=== PATIENT | male | born 1970 | race Two or more races ===

== ENCOUNTER 2018-02-16 09:55 | Inpatient (IN) | payer MEDICAID ==
[~2018-02-16] VITALS: Ht 165.1 cm; Wt 76.2 kg
[2018-02-16 11:59] LABS: EOSINOPHILS % 2.1 % (0.0-5.0); HEMATOCRIT. 35.4 % (42.0-52.0); HEMOGLOBIN. 12.4 g/dL (14.0-18.0); LYMPHOCYTES % 20.6 % (20.0-50.0); MEAN CORPUSCULAR HEMOGLOBIN 38.9 pg (28.0-32.0); MEAN CORPUSCULAR VOLUME 110.9 fL (80.0-94.0); NEUTROPHILS % 69.3 % (40.0-76.0); RED BLOOD CELL COUNT 3.19 mill/uL (4.7-6.1); RED CELL DISTRIBUTION WIDTH 16.4 % (11.6-14.6)
[2018-02-16 12:03] LABS: CHLORIDE 104 mEq/L (98-107)
[2018-02-16 12:07] LABS: INR 1.9; PROTHROMBIN TIME 19.4 sec (9.4-11.6)
[2018-02-16 12:15] LABS: AMMONIA 105 uMol/L (<32)
[2018-02-16 12:34] LABS: PLATELET ESTIMATE NORMAL
[2018-02-16 12:35] LABS: PLATELET 147 x1000/uL (130-400)
[2018-02-16 15:45] VITALS: BP 113/59
[2018-02-16 16:00] VITALS: BP 113/59
[2018-02-16] MEDS ORDERED: HYDROMORPHONE HCL/PF 2MG/ML CPJ IV PRN (16:30)
[2018-02-16] MEDS ORDERED: NA PHOS,M-B/NA PHOS,DI-BA ENEMA 118ML PR PRN (16:30)
[2018-02-16] MEDS ORDERED: GUAIFENESIN 200MG/10ML SUGAR FREE UDC PO PRN (16:30)
[2018-02-16] MEDS ORDERED: HYDROCODONE/ACETAMINOPHEN 5/325MG TABLET PO PRN (16:30)
[2018-02-16] MEDS ORDERED: DOCUSATE SODIUM 100MG CAPSULE PO PRN (16:30)
[2018-02-16] MEDS ORDERED: CLONIDINE 0.1MG TABLET PO PRN (16:30)
[2018-02-16] MEDS ORDERED: MAGNESIUM/ALUMINUM HYDROXIDE/SIMETHICONE 30ML UDC PO PRN (16:30)
[2018-02-16] MEDS ORDERED: ONDANSETRON HCL 4MG/2ML VIAL IV PRN (16:30)
[2018-02-16] MEDS ORDERED: DIPHENHYDRAMINE 50MG/ML VIAL IV PRN (16:30)
[2018-02-16] MEDS ORDERED: LORAZEPAM 2MG/ML CPJ IV PRN (16:30)
[2018-02-16] MEDS: SODIUM CHLORIDE 0.45% 1,000 ML IV SCH (16:57)
[2018-02-16] MEDS: ENOXAPARIN 40MG/0.4ML SYR SUBCUT SCH (17:03)
[2018-02-16 20:00] VITALS: BP 123/62
[2018-02-17] VITALS: BP 100/53
[2018-02-17 01:07] LABS: CHLORIDE 106 mEq/L (98-107)
[2018-02-17 04:00] VITALS: BP 103/53
[2018-02-17 06:45] LABS: BASOPHILS % 0.9 % (0.0-2.0); EOSINOPHILS % 4.2 % (0.0-5.0); HEMATOCRIT. 27.7 % (42.0-52.0); HEMOGLOBIN. 9.7 g/dL (14.0-18.0); LYMPHOCYTES % 32.5 % (20.0-50.0); MEAN CORPUSCULAR HEMOGLOBIN 38.2 pg (28.0-32.0); MEAN CORPUSCULAR VOLUME 109.6 fL (80.0-94.0); MEAN PLATELET VOLUME 6.9 fl (7.4-10.4); MONOCYTES % 10.7 % (2.0-8.0); NEUTROPHILS % 51.7 % (40.0-76.0); PLATELET 114 x1000/uL (130-400); RED BLOOD CELL COUNT 2.53 mill/uL (4.7-6.1); RED CELL DISTRIBUTION WIDTH 16.8 % (11.6-14.6)
[2018-02-17] MEDS: LACTULOSE 20G/30ML UDC PO SCH ×3 (07:36→17:18)
[2018-02-17 08:00] VITALS: BP 115/57
[2018-02-17 08:23] LABS: CHLORIDE 107 mEq/L (98-107)
[2018-02-17 08:36] LABS: HDL CHOLESTEROL 14 mg/dL (40-59); T4 FREE 1.33 ng/dL (0.76-1.46)
[2018-02-17 08:38] LABS: LDL CHOLESTEROL 58 mg/dL (5-100)
[2018-02-17 12:00] VITALS: BP 122/70
[2018-02-17 16:00] VITALS: BP 106/48
[2018-02-17] MEDS: ENOXAPARIN 40MG/0.4ML SYR SUBCUT SCH (17:19)
[2018-02-17] MEDS: SODIUM CHLORIDE 0.45% 1,000 ML IV SCH (17:19)
[2018-02-17 20:00] VITALS: BP 111/54
[2018-02-18] VITALS: BP_SYST 105
[2018-02-18] MEDS: LACTULOSE 20G/30ML UDC PO SCH ×4 (00:06→17:37)
[2018-02-18 04:00] VITALS: BP 118/60
[2018-02-18 07:51] LABS: AMMONIA 81 uMol/L (<32)
[2018-02-18 08:00] VITALS: BP 140/72
[2018-02-18 12:00] VITALS: BP 141/61
[2018-02-18 16:00] VITALS: BP 120/72
[2018-02-18] MEDS: SODIUM CHLORIDE 0.45% 1,000 ML IV SCH (17:37)
[2018-02-18] MEDS: ENOXAPARIN 40MG/0.4ML SYR SUBCUT SCH (17:38)
[2018-02-18 20:00] VITALS: BP 100/55
[2018-02-19] VITALS: BP 113/63
[2018-02-19] MEDS: LACTULOSE 20G/30ML UDC PO SCH ×4 (02:12→17:35)
[2018-02-19 04:34] VITALS: BP 115/62
[2018-02-19 12:00] VITALS: BP 117/61
[2018-02-19 16:00] VITALS: BP 141/77
[2018-02-19] MEDS: ENOXAPARIN 40MG/0.4ML SYR SUBCUT SCH (16:50)
[2018-02-19] MEDS: SODIUM CHLORIDE 0.45% 1,000 ML IV SCH (17:35)
[2018-02-19 20:00] VITALS: BP 118/61
[2018-02-20] VITALS (7 sets, daily range): BP systolic 111–127; BP diastolic 59–72
[2018-02-20] MEDS: LACTULOSE 20G/30ML UDC PO SCH ×5 (05:57→23:03)
[2018-02-20] MEDS: FUROSEMIDE 40MG TABLET PO SCH (08:13)
[2018-02-21 04:00] VITALS: BP 127/77
[2018-02-21] MEDS: LACTULOSE 20G/30ML UDC PO SCH ×4 (05:47→23:33)
[2018-02-21 08:00] VITALS: BP 132/72
[2018-02-21] MEDS: FUROSEMIDE 40MG TABLET PO SCH (08:43)
[2018-02-21 12:00] VITALS: BP 127/72
[2018-02-21 16:44] VITALS: BP 143/64
[2018-02-21 20:00] VITALS: BP 123/60
[2018-02-22] VITALS: BP 139/68
[2018-02-22 04:00] VITALS: BP 127/61
[2018-02-22] MEDS: LACTULOSE 20G/30ML UDC PO SCH ×3 (05:52→17:09)
[2018-02-22 08:00] VITALS: BP_SYST 107; BP_SYST 115; BP_DIAS 61; BP_DIAS 62
[2018-02-22] MEDS: FUROSEMIDE 40MG TABLET PO SCH (08:13)
[2018-02-22 12:00] VITALS: BP 107/52
[2018-02-22 16:00] VITALS: BP 121/75
[2018-02-22 20:00] VITALS: BP 111/65
[2018-02-23] VITALS: BP 129/62
[2018-02-23] MEDS: LACTULOSE 20G/30ML UDC PO SCH ×4 (01:07→18:04)
[2018-02-23 04:00] VITALS: BP 115/56
[2018-02-23 08:00] VITALS: BP 133/65
[2018-02-23] MEDS: FUROSEMIDE 40MG TABLET PO SCH (08:21)
[2018-02-23 12:00] VITALS: BP 128/72
[2018-02-23 16:00] VITALS: BP 129/71
[2018-02-23 18:02] LABS: AMMONIA 151 uMol/L (<32)
[2018-02-23 20:00] VITALS: BP 125/54
[2018-02-24] VITALS: BP 142/80
[2018-02-24] MEDS: LACTULOSE 20G/30ML UDC PO SCH ×5 (00:56→23:08)
[2018-02-24 04:00] VITALS: BP 132/66
[2018-02-24] MEDS ORDERED: LACTULOSE 20G/30ML UDC PO SCH (07:45)
[2018-02-24 08:00] VITALS: BP 129/83
[2018-02-24] MEDS: FUROSEMIDE 40MG TABLET PO SCH (09:49)
[2018-02-24 10:30] LABS: BASOPHILS % 0.9 % (0.0-2.0); EOSINOPHILS % 1.1 % (0.0-5.0); HEMATOCRIT. 29.3 % (42.0-52.0); HEMOGLOBIN. 10.3 g/dL (14.0-18.0); LYMPHOCYTES % 27.4 % (20.0-50.0); MEAN CORPUSCULAR VOLUME 108.5 fL (80.0-94.0); MEAN PLATELET VOLUME 7.5 fl (7.4-10.4); MONOCYTES % 8.5 % (2.0-8.0); NEUTROPHILS % 62.1 % (40.0-76.0); PLATELET 126 x1000/uL (130-400); RED CELL DISTRIBUTION WIDTH 16.5 % (11.6-14.6)
[2018-02-24 10:53] LABS: AMMONIA 144 uMol/L (<32)
[2018-02-24 11:05] LABS: CHLORIDE 110 mEq/L (98-107)
[2018-02-24 12:00] VITALS: BP_SYST 127; BP_SYST 136; BP_DIAS 65; BP_DIAS 74
[2018-02-24 20:00] VITALS: BP 105/41
[2018-02-25] VITALS: BP 102/31
[2018-02-25 04:00] VITALS: BP 136/68
[2018-02-25] MEDS: LACTULOSE 20G/30ML UDC PO SCH ×3 (05:20→22:52)
[2018-02-25 06:49] LABS: BASOPHILS % 0.9 % (0.0-2.0); EOSINOPHILS % 0.6 % (0.0-5.0); HEMATOCRIT. 29.7 % (42.0-52.0); HEMOGLOBIN. 10.5 g/dL (14.0-18.0); LYMPHOCYTES % 27.9 % (20.0-50.0); MEAN CORPUSCULAR HEMOGLOBIN 38.4 pg (28.0-32.0); MEAN CORPUSCULAR VOLUME 108.8 fL (80.0-94.0); MEAN PLATELET VOLUME 7.7 fl (7.4-10.4); MONOCYTES % 10.4 % (2.0-8.0); NEUTROPHILS % 60.2 % (40.0-76.0); PLATELET 129 x1000/uL (130-400); RED BLOOD CELL COUNT 2.73 mill/uL (4.7-6.1)
[2018-02-25 07:40] LABS: CHLORIDE 109 mEq/L (98-107)
[2018-02-25 08:00] VITALS: BP 152/69
[2018-02-25] MEDS: FUROSEMIDE 40MG TABLET PO SCH (08:40)
[2018-02-25 09:00] LABS: AMMONIA 136 uMol/L (<32)
[2018-02-25] MEDS ORDERED: POTASSIUM CHLORIDE INJ 40 MEQ in DEXT 5% WATER 250 ML IV ONE (10:15)
[2018-02-25 12:00] VITALS: BP 124/66
[2018-02-25] MEDS: KCL 20MEQ/100ML PREMIX 100 ML IV SCH ×2 (12:38→15:00)
[2018-02-25 13:13] LABS: PLATELET ESTIMATE NORMAL
[2018-02-25 16:00] VITALS: BP 126/52
[2018-02-25] MEDS: RIFAXIMIN 550 MG TABLET PO SCH (17:55)
[2018-02-25 20:00] VITALS: BP 125/66
[2018-02-26] VITALS: BP 106/45
[2018-02-26 04:00] VITALS: BP 116/65
[2018-02-26] MEDS: RIFAXIMIN 550 MG TABLET PO SCH ×2 (06:02→17:15)
[2018-02-26] MEDS: LACTULOSE 20G/30ML UDC PO SCH ×3 (06:03→21:16)
[2018-02-26 07:14] LABS: AMMONIA 104 uMol/L (<32)
[2018-02-26 08:00] VITALS: BP 99/51
[2018-02-26] MEDS: FUROSEMIDE 40MG TABLET PO SCH (08:32)
[2018-02-26 10:34] LABS: CHLORIDE 111 mEq/L (98-107)
[2018-02-26 10:35] LABS: HEMATOCRIT 29.3 % (42.0-52.0); HEMOGLOBIN 10.1 g/dL (14.0-18.0); MEAN CORPUSCULAR HEMOGLOBIN 38.7 pg (28.0-32.0); MEAN CORPUSCULAR VOLUME 112.2 fL (80.0-94.0); PLATELET 126 x1000/uL (130-400); RED BLOOD CELL COUNT 2.61 mill/uL (4.7-6.1); RED CELL DISTRIBUTION WIDTH 16.8 % (11.6-14.6)
[2018-02-26] MEDS: PANTOPRAZOLE SODIUM 40 MG/VIAL IV SCH ×2 (10:45→21:16)
[2018-02-26 12:01] VITALS: BP 106/52
[2018-02-26 13:11] LABS: INR 1.7; PARTIAL THROMBOPLASTIN TIME 38.4 sec (23.4-31.0); PROTHROMBIN TIME 17.8 sec (9.4-11.6)
[2018-02-26 16:00] VITALS: BP 130/65
[2018-02-26] MEDS ORDERED: PHYTONADIONE 10MG/ML AMP SUBCUT NR (16:00)
[2018-02-26 20:00] VITALS: BP 110/64
[2018-02-27] VITALS (11 sets, daily range): BP systolic 97–124; BP diastolic 47–60
[2018-02-27] MEDS: LACTULOSE 20G/30ML UDC PO SCH ×3 (05:56→22:05)
[2018-02-27] MEDS: RIFAXIMIN 550 MG TABLET PO SCH ×2 (05:56→17:38)
[2018-02-27] MEDS ORDERED: PHYTONADIONE 10MG/ML AMP SUBCUT NR (06:00)
[2018-02-27 07:07] LABS: AMMONIA 48 uMol/L (<32)
[2018-02-27 07:09] LABS: INR 1.8; PARTIAL THROMBOPLASTIN TIME 43.4 sec (23.4-31.0); PROTHROMBIN TIME 18.8 sec (9.4-11.6)
[2018-02-27 07:29] LABS: HEMOGLOBIN 9.7 g/dL (14.0-18.0); MEAN CORPUSCULAR HEMOGLOBIN 38.3 pg (28.0-32.0); PLATELET 107 x1000/uL (130-400); RED BLOOD CELL COUNT 2.52 mill/uL (4.7-6.1); RED CELL DISTRIBUTION WIDTH 16.9 % (11.6-14.6)
[2018-02-27 07:47] LABS: CHLORIDE 112 mEq/L (98-107)
[2018-02-27] MEDS: PANTOPRAZOLE SODIUM 40 MG/VIAL IV SCH ×2 (08:38→22:05)
[2018-02-27] MEDS ORDERED: POTASSIUM CHLORIDE INJ 40 MEQ in DEXT 5% WATER 250 ML IV ONE (09:45)
[2018-02-27] MEDS: FUROSEMIDE 40MG TABLET PO SCH (09:59)
[2018-02-27] MEDS ORDERED: KCL 20MEQ/100ML PREMIX 100 ML IV NR ×2 (10:30→12:30)
[2018-02-27] MEDS ORDERED: MIDAZOLAM HCL 5 MG/5 ML VIAL IV PRN (11:17)
[2018-02-27] MEDS ORDERED: FENTANYL CITRATE/PF 50MCG/ML 2ML VIAL ONE (11:23)
[2018-02-27] MEDS ORDERED: MIDAZOLAM HCL 5 MG/5 ML VIAL ONE (11:23)
[2018-02-27] MEDS ORDERED: PHYTONADIONE 10MG/ML AMP SUBCUT SCH ×2 (12:00→18:00)
[2018-02-27] MEDS ORDERED: SORBITOL 70% SOLN 30ML PO SCH (12:00)
[2018-02-27] MEDS ORDERED: SODIUM CHLORIDE 0.9% 10ML VIAL ONE (14:27)
[2018-02-27] MEDS ORDERED: SIMETHICONE 40 MG/0.6 ML 30ML ONE (14:27)
[2018-02-28] VITALS: BP 124/59
[2018-02-28] MEDS: IPRATROPIUM/ALBUTEROL 0.5-3(2.5)MG/3ML NEB INH PRN (00:51)
[2018-02-28 00:57] LABS: HEMATOCRIT 27.1 % (42.0-52.0); HEMOGLOBIN 9.3 g/dL (14.0-18.0)
[2018-02-28 01:02] LABS: INR 1.6; PROTHROMBIN TIME 16.6 sec (9.4-11.6)
[2018-02-28 04:00] VITALS: BP 115/58
[2018-02-28] MEDS: RIFAXIMIN 550 MG TABLET PO SCH ×2 (05:41→18:30)
[2018-02-28] MEDS: LACTULOSE 20G/30ML UDC PO SCH ×4 (05:41→21:14)
[2018-02-28 07:25] LABS: AMMONIA 31 uMol/L (<32)
[2018-02-28] MEDS ORDERED: SODIUM BICARBONATE 4% (2.4MEQ) 5ML VIAL IV ONE (08:21)
[2018-02-28] MEDS ORDERED: LIDOCAINE HCL/PF 1% 10 MG/ML 5ML VIAL ONE (08:23)
[2018-02-28 08:46] VITALS: BP 116/61
[2018-02-28] MEDS: PANTOPRAZOLE SODIUM 40 MG/VIAL IV SCH ×2 (10:20→21:15)
[2018-02-28] MEDS: FUROSEMIDE 40MG/4ML VIAL IVP SCH (10:20)
[2018-02-28 12:16] VITALS: BP 108/53
[2018-02-28 20:00] VITALS: BP 116/59
[2018-03-01] VITALS: BP 106/44
[2018-03-01 04:00] VITALS: BP 107/49
[2018-03-01] MEDS: LACTULOSE 20G/30ML UDC PO SCH ×3 (06:12→21:00)
[2018-03-01] MEDS: RIFAXIMIN 550 MG TABLET PO SCH ×2 (06:13→17:22)
[2018-03-01 07:19] LABS: BASOPHILS % 0.4 % (0.0-2.0); HEMATOCRIT. 31.7 % (42.0-52.0); MEAN CORPUSCULAR HEMOGLOBIN 38.4 pg (28.0-32.0); MEAN CORPUSCULAR VOLUME 110.1 fL (80.0-94.0); MEAN PLATELET VOLUME 7.8 fl (7.4-10.4); MONOCYTES % 10.1 % (2.0-8.0); NEUTROPHILS % 69.5 % (40.0-76.0); PLATELET 109 x1000/uL (130-400); RED BLOOD CELL COUNT 2.88 mill/uL (4.7-6.1); RED CELL DISTRIBUTION WIDTH 16.4 % (11.6-14.6)
[2018-03-01 07:46] LABS: CHLORIDE 111 mEq/L (98-107)
[2018-03-01 08:00] VITALS: BP 103/53
[2018-03-01] MEDS: FUROSEMIDE 40MG/4ML VIAL IVP SCH (08:13)
[2018-03-01] MEDS: PANTOPRAZOLE SODIUM 40 MG/VIAL IV SCH ×2 (08:13→21:00)
[2018-03-01] MEDS: KCL 20MEQ/100ML PREMIX 100 ML IV SCH ×2 (11:05→17:22)
[2018-03-01] MEDS ORDERED: POTASSIUM CHLORIDE INJ 40 MEQ in DEXT 5% WATER 500 ML IV NR (12:00)
[2018-03-01 12:09] VITALS: BP 100/49
[2018-03-01 14:03] LABS: PLATELET ESTIMATE DECREASED
[2018-03-01 16:30] VITALS: BP 120/51
[2018-03-01 20:00] VITALS: BP 111/54
[2018-03-02 04:00] VITALS: BP 98/43
[2018-03-02] MEDS: LACTULOSE 20G/30ML UDC PO SCH ×3 (06:26→22:06)
[2018-03-02] MEDS: RIFAXIMIN 550 MG TABLET PO SCH ×2 (06:26→17:44)
[2018-03-02 07:17] LABS: CHLORIDE 107 mEq/L (98-107)
[2018-03-02 07:29] LABS: AMMONIA 68 uMol/L (<32)
[2018-03-02 08:00] VITALS: BP 107/42
[2018-03-02 08:08] LABS: BASOPHILS % 0.4 % (0.0-2.0); EOSINOPHILS % 3.1 % (0.0-5.0); HEMATOCRIT. 29.3 % (42.0-52.0); HEMOGLOBIN. 10.4 g/dL (14.0-18.0); LYMPHOCYTES % 21.4 % (20.0-50.0); MEAN CORPUSCULAR HEMOGLOBIN 39.6 pg (28.0-32.0); MEAN CORPUSCULAR VOLUME 110.9 fL (80.0-94.0); MONOCYTES % 9.5 % (2.0-8.0); NEUTROPHILS % 65.6 % (40.0-76.0); RED BLOOD CELL COUNT 2.64 mill/uL (4.7-6.1); RED CELL DISTRIBUTION WIDTH 16.7 % (11.6-14.6)
[2018-03-02] MEDS: PANTOPRAZOLE SODIUM 40 MG/VIAL IV SCH ×2 (08:43→22:06)
[2018-03-02] MEDS: FUROSEMIDE 40MG/4ML VIAL IVP SCH (08:43)
[2018-03-02 12:00] VITALS: BP 98/46
[2018-03-02 12:32] LABS: PLATELET 114 x1000/uL (130-400)
[2018-03-02] MEDS ORDERED: POTASSIUM CHLORIDE 20MEQ TABLET SR PO NR (13:00)
[2018-03-02 16:00] VITALS: BP 102/72
[2018-03-02 20:00] VITALS: BP 109/48
[2018-03-02] MEDS: IPRATROPIUM/ALBUTEROL 0.5-3(2.5)MG/3ML NEB HHN SCH ×2 (21:06→23:49)
[2018-03-02 22:00] VITALS: BP 98/49
[2018-03-03 04:00] VITALS: BP 94/55
[2018-03-03] MEDS: IPRATROPIUM/ALBUTEROL 0.5-3(2.5)MG/3ML NEB HHN SCH ×4 (04:44→21:11)
[2018-03-03] MEDS: RIFAXIMIN 550 MG TABLET PO SCH ×2 (05:38→18:10)
[2018-03-03 06:53] LABS: BASOPHILS % 0.5 % (0.0-2.0); HEMATOCRIT. 29.7 % (42.0-52.0); HEMOGLOBIN. 10.3 g/dL (14.0-18.0); LYMPHOCYTES % 30.4 % (20.0-50.0); MEAN CORPUSCULAR HEMOGLOBIN 38.1 pg (28.0-32.0); MEAN CORPUSCULAR VOLUME 109.9 fL (80.0-94.0); MONOCYTES % 10.5 % (2.0-8.0); NEUTROPHILS % 56.6 % (40.0-76.0); RED CELL DISTRIBUTION WIDTH 16.7 % (11.6-14.6)
[2018-03-03 06:58] LABS: CHLORIDE 105 mEq/L (98-107)
[2018-03-03 08:00] VITALS: BP 111/48
[2018-03-03] MEDS: IPRATROPIUM/ALBUTEROL 0.5-3(2.5)MG/3ML NEB INH PRN (08:11)
[2018-03-03] MEDS: LACTULOSE 20G/30ML UDC PO SCH ×2 (08:55→18:10)
[2018-03-03] MEDS: PANTOPRAZOLE SODIUM 40 MG/VIAL IV SCH ×2 (08:55→20:15)
[2018-03-03] MEDS: FUROSEMIDE 40MG/4ML VIAL IVP SCH (08:55)
[2018-03-03 09:54] LABS: PLATELET 108 x1000/uL (130-400)
[2018-03-03 10:14] LABS: AMMONIA 60 uMol/L (<32)
[2018-03-03 10:45] LABS: CHLORIDE 104 mEq/L (98-107)
[2018-03-03 12:18] VITALS: BP 110/54
[2018-03-03] MEDS ORDERED: POTASSIUM CHLORIDE INJ 40 MEQ in DEXT 5% WATER 250 ML IV ONE (13:15)
[2018-03-03] MEDS: KCL 20MEQ/100ML PREMIX 100 ML IV SCH ×2 (14:45→18:10)
[2018-03-03 16:52] VITALS: BP 100/59
[2018-03-03 20:00] VITALS: BP 99/55
[2018-03-04] VITALS: BP_SYST 114; BP_SYST 115; BP_DIAS 54
[2018-03-04] MEDS: IPRATROPIUM/ALBUTEROL 0.5-3(2.5)MG/3ML NEB HHN SCH ×6 (00:26→21:33)
[2018-03-04 04:00] VITALS: BP 108/56
[2018-03-04] MEDS: RIFAXIMIN 550 MG TABLET PO SCH ×2 (06:23→18:56)
[2018-03-04 06:49] LABS: AMMONIA 61 uMol/L (<32)
[2018-03-04 08:00] VITALS: BP 118/63
[2018-03-04] MEDS: PANTOPRAZOLE SODIUM 40 MG/VIAL IV SCH ×2 (09:22→21:56)
[2018-03-04] MEDS: LACTULOSE 20G/30ML UDC PO SCH ×2 (09:22→18:56)
[2018-03-04] MEDS: FUROSEMIDE 40MG/4ML VIAL IVP SCH (09:22)
[2018-03-04 12:00] VITALS: BP 99/53
[2018-03-04 16:00] VITALS: BP 101/54
[2018-03-04 20:00] VITALS: BP 99/57
[2018-03-05] VITALS: BP 97/55
[2018-03-05] MEDS: IPRATROPIUM/ALBUTEROL 0.5-3(2.5)MG/3ML NEB HHN SCH ×6 (00:54→20:38)
[2018-03-05 04:00] VITALS: BP 103/58
[2018-03-05] MEDS: RIFAXIMIN 550 MG TABLET PO SCH ×2 (05:40→16:51)
[2018-03-05 08:00] VITALS: BP 150/51
[2018-03-05] MEDS: FUROSEMIDE 40MG/4ML VIAL IVP SCH (11:13)
[2018-03-05] MEDS: PANTOPRAZOLE SODIUM 40 MG/VIAL IV SCH ×2 (11:13→21:23)
[2018-03-05] MEDS: LACTULOSE 20G/30ML UDC PO SCH ×2 (11:13→16:51)
[2018-03-05 12:00] VITALS: BP 105/66
[2018-03-05 13:07] LABS: BASOPHILS % 0.8 % (0.0-2.0); EOSINOPHILS % 3.1 % (0.0-5.0); HEMATOCRIT. 29.4 % (42.0-52.0); HEMOGLOBIN. 10.2 g/dL (14.0-18.0); LYMPHOCYTES % 26.7 % (20.0-50.0); MEAN CORPUSCULAR HEMOGLOBIN 38.3 pg (28.0-32.0); MEAN CORPUSCULAR VOLUME 110.7 fL (80.0-94.0); MONOCYTES % 8.3 % (2.0-8.0); NEUTROPHILS % 61.1 % (40.0-76.0); RED BLOOD CELL COUNT 2.66 mill/uL (4.7-6.1); RED CELL DISTRIBUTION WIDTH 16.6 % (11.6-14.6)
[2018-03-05 13:24] LABS: CHLORIDE 106 mEq/L (98-107)
[2018-03-05 13:38] LABS: PLATELET 108 x1000/uL (130-400)
[2018-03-05 14:12] LABS: AMMONIA 88 uMol/L (<32)
[2018-03-05 16:00] VITALS: BP 112/62
[2018-03-05 20:00] VITALS: BP 106/70
[2018-03-06 00:05] VITALS: BP 102/69
[2018-03-06] MEDS: IPRATROPIUM/ALBUTEROL 0.5-3(2.5)MG/3ML NEB HHN SCH ×6 (00:45→20:43)
[2018-03-06 04:00] VITALS: BP 112/53
[2018-03-06] MEDS: RIFAXIMIN 550 MG TABLET PO SCH (05:41)
[2018-03-06 08:00] VITALS: BP 103/58
[2018-03-06] MEDS: LACTULOSE 20G/30ML UDC PO SCH ×3 (09:13→18:04)
[2018-03-06] MEDS: PANTOPRAZOLE SODIUM 40 MG/VIAL IV SCH ×2 (09:13→21:11)
[2018-03-06] MEDS: FUROSEMIDE 40MG/4ML VIAL IVP SCH (09:13)
[2018-03-06 12:00] VITALS: BP 110/60
[2018-03-06 20:00] VITALS: BP 108/63
[2018-03-06 23:57] VITALS: BP 106/59
[2018-03-07] MEDS: IPRATROPIUM/ALBUTEROL 0.5-3(2.5)MG/3ML NEB HHN SCH ×6 (00:55→21:15)
[2018-03-07 04:00] VITALS: BP 101/51
[2018-03-07] MEDS: RIFAXIMIN 550 MG TABLET PO SCH ×2 (05:34→17:39)
[2018-03-07 07:00] LABS: AMMONIA 29 uMol/L (<32)
[2018-03-07 08:00] VITALS: BP 102/53
[2018-03-07] MEDS: FUROSEMIDE 40MG/4ML VIAL IVP SCH (09:13)
[2018-03-07] MEDS: PANTOPRAZOLE SODIUM 40 MG/VIAL IV SCH ×2 (09:13→20:49)
[2018-03-07] MEDS: LACTULOSE 20G/30ML UDC PO SCH ×3 (09:13→17:39)
[2018-03-07 12:17] VITALS: BP 101/64
[2018-03-07 16:00] VITALS: BP 110/54
[2018-03-07 20:00] VITALS: BP 102/60
[2018-03-08] VITALS: BP 105/80
[2018-03-08] MEDS: IPRATROPIUM/ALBUTEROL 0.5-3(2.5)MG/3ML NEB HHN SCH ×6 (01:00→21:20)
[2018-03-08 04:00] VITALS: BP 132/80
[2018-03-08] MEDS: RIFAXIMIN 550 MG TABLET PO SCH ×3 (06:00→18:00)
[2018-03-08 07:58] VITALS: BP 101/72
[2018-03-08] MEDS: PANTOPRAZOLE 40MG DR TABLET PO SCH (08:54)
[2018-03-08] MEDS: LACTULOSE 20G/30ML UDC PO SCH ×3 (08:54→17:00)
[2018-03-08] MEDS: FUROSEMIDE 40MG TABLET PO SCH (08:54)
[2018-03-08 11:22] LABS: AMMONIA 46 uMol/L (<32)
[2018-03-08 12:00] VITALS: BP 105/53
[2018-03-08 16:00] VITALS: BP 101/62
[2018-03-08 20:00] VITALS: BP 114/56
[2018-03-09] VITALS: BP 108/50
[2018-03-09] MEDS: IPRATROPIUM/ALBUTEROL 0.5-3(2.5)MG/3ML NEB HHN SCH ×6 (00:14→21:23)
[2018-03-09 04:00] VITALS: BP 118/56
[2018-03-09] MEDS: PANTOPRAZOLE 40MG DR TABLET PO SCH (06:25)
[2018-03-09] MEDS: RIFAXIMIN 550 MG TABLET PO SCH ×2 (06:25→17:08)
[2018-03-09 07:42] VITALS: BP 118/54
[2018-03-09] MEDS: LACTULOSE 20G/30ML UDC PO SCH ×3 (09:51→17:08)
[2018-03-09] MEDS: FUROSEMIDE 40MG TABLET PO SCH (09:51)
[2018-03-09 10:44] LABS: AMMONIA 57 uMol/L (<32)
[2018-03-09 11:50] VITALS: BP 108/53
[2018-03-09 15:34] VITALS: BP 126/73
[2018-03-09 20:00] VITALS: BP 116/61
[2018-03-10] VITALS: BP 97/51
[2018-03-10] MEDS: IPRATROPIUM/ALBUTEROL 0.5-3(2.5)MG/3ML NEB HHN SCH ×6 (00:45→21:19)
[2018-03-10 04:00] VITALS: BP 101/50
[2018-03-10] MEDS: RIFAXIMIN 550 MG TABLET PO SCH ×2 (06:30→17:27)
[2018-03-10 07:21] VITALS: BP 98/66
[2018-03-10] MEDS: PANTOPRAZOLE 40MG DR TABLET PO SCH (07:28)
[2018-03-10] MEDS: LACTULOSE 20G/30ML UDC PO SCH ×3 (08:02→17:27)
[2018-03-10] MEDS: FUROSEMIDE 40MG TABLET PO SCH (08:03)
[2018-03-10 12:07] VITALS: BP 112/70
[2018-03-10 15:30] VITALS: BP 103/53
[2018-03-10 20:04] VITALS: BP 99/46
[2018-03-11] VITALS: BP 108/48
[2018-03-11] MEDS: IPRATROPIUM/ALBUTEROL 0.5-3(2.5)MG/3ML NEB HHN SCH ×2 (01:33→21:10)
[2018-03-11 04:00] VITALS: BP 118/51
[2018-03-11] MEDS: PANTOPRAZOLE 40MG DR TABLET PO SCH ×2 (05:41→06:02)
[2018-03-11] MEDS: RIFAXIMIN 550 MG TABLET PO SCH ×3 (05:41→17:14)
[2018-03-11 08:00] VITALS: BP 122/62
[2018-03-11] MEDS: LACTULOSE 20G/30ML UDC PO SCH ×3 (08:41→17:14)
[2018-03-11] MEDS: FUROSEMIDE 40MG TABLET PO SCH (09:00)
[2018-03-11 12:00] VITALS: BP 123/63
[2018-03-11 13:30] LABS: HEMATOCRIT 28.7 % (42.0-52.0); HEMOGLOBIN 10.1 g/dL (14.0-18.0); MEAN CORPUSCULAR HEMOGLOBIN 38.2 pg (28.0-32.0); MEAN CORPUSCULAR VOLUME 108.1 fL (80.0-94.0); PLATELET 137 x1000/uL (130-400); RED BLOOD CELL COUNT 2.65 mill/uL (4.7-6.1); RED CELL DISTRIBUTION WIDTH 16.3 % (11.6-14.6)
[2018-03-11 14:03] LABS: CHLORIDE 102 mEq/L (98-107)
[2018-03-11 14:10] LABS: AMMONIA 102 uMol/L (<32)
[2018-03-11 16:00] VITALS: BP 140/76
[2018-03-11] MEDS ORDERED: POTASSIUM CHLORIDE 20MEQ/PACKET NG NR (16:45)
[2018-03-11 20:00] VITALS: BP 111/73
[2018-03-12] VITALS: BP 119/65
[2018-03-12] MEDS: IPRATROPIUM/ALBUTEROL 0.5-3(2.5)MG/3ML NEB HHN SCH ×6 (01:01→20:56)
[2018-03-12 04:00] VITALS: BP 101/58
[2018-03-12 06:48] LABS: AMMONIA 111 uMol/L (<32)
[2018-03-12 08:00] VITALS: BP 94/47
[2018-03-12] MEDS: LACTULOSE 20G/30ML UDC PO SCH ×3 (09:07→23:04)
[2018-03-12] MEDS: FUROSEMIDE 40MG TABLET PO SCH (09:07)
[2018-03-12] MEDS: PANTOPRAZOLE 40MG DR TABLET PO SCH (09:07)
[2018-03-12] MEDS: RIFAXIMIN 550 MG TABLET PO SCH ×2 (09:07→18:20)
[2018-03-12 12:00] VITALS: BP 114/70
[2018-03-12 15:59] LABS: CHLORIDE 104 mEq/L (98-107)
[2018-03-12 16:00] VITALS: BP 127/77
[2018-03-12] MEDS ORDERED: POTASSIUM CHLORIDE 20MEQ TABLET SR PO NR (16:15)
[2018-03-12 20:00] VITALS: BP 149/74
[2018-03-13] VITALS (8 sets, daily range): BP systolic 80–140; BP diastolic 41–76
[2018-03-13] MEDS: IPRATROPIUM/ALBUTEROL 0.5-3(2.5)MG/3ML NEB HHN SCH ×5 (00:53→21:12)
[2018-03-13] MEDS: ACETAMINOPHEN 325MG TABLET PO PRN (01:20)
[2018-03-13] MEDS: RIFAXIMIN 550 MG TABLET PO SCH ×2 (05:04→17:33)
[2018-03-13] MEDS: LACTULOSE 20G/30ML UDC PO SCH ×3 (05:04→17:33)
[2018-03-13] MEDS: PANTOPRAZOLE 40MG DR TABLET PO SCH (06:23)
[2018-03-13] MEDS: FUROSEMIDE 40MG TABLET PO SCH (08:20)
[2018-03-13 10:05] LABS: HEMATOCRIT 28.5 % (42.0-52.0); HEMOGLOBIN 9.9 g/dL (14.0-18.0); MEAN CORPUSCULAR HEMOGLOBIN 37.7 pg (28.0-32.0); MEAN CORPUSCULAR VOLUME 108.9 fL (80.0-94.0); PLATELET 132 x1000/uL (130-400); RED BLOOD CELL COUNT 2.62 mill/uL (4.7-6.1); RED CELL DISTRIBUTION WIDTH 16.2 % (11.6-14.6)
[2018-03-13 10:13] LABS: AMMONIA 83 uMol/L (<32)
[2018-03-13 10:17] LABS: CHLORIDE 106 mEq/L (98-107)
[2018-03-13] MEDS ORDERED: POTASSIUM CHLORIDE 20MEQ/PACKET NG NR (14:30)
[2018-03-14] VITALS (50 sets, daily range): BP systolic 97–147; BP diastolic 38–102
[2018-03-14] MEDS: IPRATROPIUM/ALBUTEROL 0.5-3(2.5)MG/3ML NEB HHN SCH ×6 (00:38→20:24)
[2018-03-14] MEDS: LACTULOSE 20G/30ML UDC PO SCH ×5 (00:54→23:41)
[2018-03-14] MEDS: RIFAXIMIN 550 MG TABLET PO SCH ×2 (06:00→17:42)
[2018-03-14 06:59] LABS: BASOPHILS % 0.2 % (0.0-2.0); EOSINOPHILS % 0.1 % (0.0-5.0); HEMATOCRIT. 30.8 % (42.0-52.0); HEMOGLOBIN. 10.6 g/dL (14.0-18.0); MEAN CORPUSCULAR HEMOGLOBIN 37.4 pg (28.0-32.0); MEAN CORPUSCULAR VOLUME 108.9 fL (80.0-94.0); NEUTROPHILS % 82.7 % (40.0-76.0); RED BLOOD CELL COUNT 2.83 mill/uL (4.7-6.1); RED CELL DISTRIBUTION WIDTH 16.5 % (11.6-14.6)
[2018-03-14] MEDS: PANTOPRAZOLE 40MG DR TABLET PO SCH (07:10)
[2018-03-14 07:35] LABS: CHLORIDE 107 mEq/L (98-107)
[2018-03-14] MEDS ORDERED: LEVOFLOXACIN 500MG PREMIX 100 ML IV SCH (08:00)
[2018-03-14] MEDS: FUROSEMIDE 40MG TABLET PO SCH (09:00)
[2018-03-14 09:41] LABS: BG BASE EXCESS -1.8 mmol/L (-2.0-2.0); BG CARBOXYHEMOGLOBIN 0.3 % (0.5-1.5); BG DEOXYHEMOGLOBIN 9.6 % (0.0-5.0); BG FRACTION INSPIRED OXYGEN 32; BG HCO3 ACT 20.2 mmol/L (22.0-26.0); BG OXYGEN SATURATION 90.4 % (92.0-98.5); BG OXYHEMOGLOBIN 90.1 % (94.0-97.0); BG PCO2 25.9 mmHg (35.0-45.0); BG PO2 56.7 mmHg (75.0-100.0); BG SAMPLE SITE RIGHT BRACHIAL; BG TOTAL HEMOGLOBIN 10.5 g/dL (12.0-18.0); BG VENT MODE NASAL CANNULA
[2018-03-14] MEDS ORDERED: PROPOFOL 10MG/ML 100ML 100 ML IV PRN (10:00)
[2018-03-14 10:14] LABS: MEAN PLATELET VOLUME 6.3 fl (7.4-10.4); PLATELET 137 x1000/uL (130-400)
[2018-03-14] MEDS ORDERED: VANCOMYCIN 1500MG in DEXTROSE 5% WATER 250ML IV SCH (12:00)
[2018-03-14] MEDS: PIPERACILLIN/TAZ 3.375G PREMIX 50 ML IV SCH ×2 (13:02→21:37)
[2018-03-14 13:26] LABS: BG BASE EXCESS -1.7 mmol/L (-2.0-2.0); BG CARBOXYHEMOGLOBIN 0.1 % (0.5-1.5); BG DEOXYHEMOGLOBIN 0.5 % (0.0-5.0); BG FRACTION INSPIRED OXYGEN 100; BG HCO3 ACT 22.1 mmol/L (22.0-26.0); BG METHEMOGLOBIN 0.3 % (0.0-1.5); BG OXYGEN SATURATION 99.5 % (92.0-98.5); BG OXYHEMOGLOBIN 99.1 % (94.0-97.0); BG PCO2 33.7 mmHg (35.0-45.0); BG PH 7.434 (7.350-7.450); BG PO2 209.6 mmHg (75.0-100.0); BG SAMPLE SITE RIGHT RADIAL; BG TOTAL HEMOGLOBIN 10.7 g/dL (12.0-18.0); BG VENT MODE VENT - A/C; BG VENT RATE 16 set
[2018-03-14 13:27] LABS: AMMONIA 56 uMol/L (<32)
[2018-03-14] MEDS ORDERED: POTASSIUM CHLORIDE INJ 40 MEQ in DEXT 5% WATER 250 ML IV ONE (14:15)
[2018-03-14] MEDS ORDERED: ETOMIDATE 2MG/ML 10ML VIAL IV ONE (14:33)
[2018-03-14] MEDS ORDERED: VECURONIUM BROMIDE 10 MG/VIAL IV ONE ×2 (14:33→14:55)
[2018-03-14] MEDS: ACETYLCYSTEINE 100MG/ML 10% VIAL 4ML INH SCH (15:11)
[2018-03-14] MEDS: KCL 20MEQ/100ML PREMIX 100 ML IV SCH ×2 (15:13→17:37)
[2018-03-14] MEDS: VANCOMYCIN 1 G PREMIX 200 ML IV SCH (23:22)
[2018-03-14] MEDS: DEXT 5%/LACTATED RINGERS 1,000 ML IV SCH (23:30)
[2018-03-15] VITALS (96 sets, daily range): BP systolic 77–137; BP diastolic 31–77
[2018-03-15] MEDS: IPRATROPIUM/ALBUTEROL 0.5-3(2.5)MG/3ML NEB HHN SCH ×7 (00:29→23:57)
[2018-03-15] MEDS: ACETYLCYSTEINE 100MG/ML 10% VIAL 4ML INH SCH ×2 (00:30→08:34)
[2018-03-15] MEDS: PIPERACILLIN/TAZ 3.375G PREMIX 50 ML IV SCH ×3 (04:17→20:43)
[2018-03-15] MEDS: ACETAMINOPHEN 325MG TABLET PO PRN (04:19)
[2018-03-15 05:50] LABS: BASOPHILS % 0.3 % (0.0-2.0); EOSINOPHILS % 1.2 % (0.0-5.0); HEMOGLOBIN. 10.5 g/dL (14.0-18.0); LYMPHOCYTES % 12.6 % (20.0-50.0); MEAN CORPUSCULAR HEMOGLOBIN 37.3 pg (28.0-32.0); MEAN CORPUSCULAR VOLUME 109.8 fL (80.0-94.0); MONOCYTES % 7.1 % (2.0-8.0); NEUTROPHILS % 78.8 % (40.0-76.0); RED BLOOD CELL COUNT 2.83 mill/uL (4.7-6.1); RED CELL DISTRIBUTION WIDTH 16.2 % (11.6-14.6)
[2018-03-15 06:04] LABS: AMMONIA 59 uMol/L (<32)
[2018-03-15 06:09] LABS: CHLORIDE 111 mEq/L (98-107)
[2018-03-15] MEDS: LACTULOSE 20G/30ML UDC PO SCH ×3 (07:30→17:26)
[2018-03-15] MEDS: VANCOMYCIN 1 G PREMIX 200 ML IV SCH ×2 (07:30→16:05)
[2018-03-15] MEDS: RIFAXIMIN 550 MG TABLET PO SCH ×2 (07:31→17:26)
[2018-03-15] MEDS: PANTOPRAZOLE 40MG DR TABLET PO SCH (07:31)
[2018-03-15] MEDS: FUROSEMIDE 40MG TABLET PO SCH (08:28)
[2018-03-15 08:58] LABS: PLATELET 110 x1000/uL (130-400)
[2018-03-15 08:59] LABS: MEAN PLATELET VOLUME 8.3 fl (7.4-10.4)
[2018-03-15 10:14] LABS: INR 2.3; PROTHROMBIN TIME 23.9 sec (9.4-11.6)
[2018-03-15 10:29] LABS: BG CARBOXYHEMOGLOBIN 0.2 % (0.5-1.5); BG DEOXYHEMOGLOBIN 1.3 % (0.0-5.0); BG FRACTION INSPIRED OXYGEN 40; BG HCO3 ACT 23.7 mmol/L (22.0-26.0); BG METHEMOGLOBIN 0.1 % (0.0-1.5); BG OXYGEN SATURATION 98.7 % (92.0-98.5); BG OXYHEMOGLOBIN 98.4 % (94.0-97.0); BG PCO2 31.1 mmHg (35.0-45.0); BG PH 7.499 (7.350-7.450); BG PO2 121.6 mmHg (75.0-100.0); BG SAMPLE SITE RIGHT BRACHIAL; BG TIDAL VOLUME(mL) 500 mL; BG TOTAL HEMOGLOBIN 10.7 g/dL (12.0-18.0); BG VENT MODE VENT - A/C; BG VENT RATE 14 set
[2018-03-15] MEDS ORDERED: LIDOCAINE HCL 1% 20ML VIAL (Pyxis) INJ ONE (10:57)
[2018-03-15] MEDS: DEXT 5%/LACTATED RINGERS 1,000 ML IV SCH (20:44)
[2018-03-16] VITALS (69 sets, daily range): BP systolic 86–146; BP diastolic 47–83
[2018-03-16] MEDS: LACTULOSE 20G/30ML UDC PO SCH ×4 (00:16→17:42)
[2018-03-16] MEDS: VANCOMYCIN 1 G PREMIX 200 ML IV SCH ×2 (02:28→14:34)
[2018-03-16] MEDS: IPRATROPIUM/ALBUTEROL 0.5-3(2.5)MG/3ML NEB HHN SCH ×5 (03:51→20:19)
[2018-03-16] MEDS: PIPERACILLIN/TAZ 3.375G PREMIX 50 ML IV SCH (03:53)
[2018-03-16 05:00] LABS: CLARITY URINE TURBID (CLEAR); COLOR URINE DARK YELLOW (YELLOW); KETONES URINE TRACE (NEGATIVE); LEUKOCYTE ESTERASE URINE 1+ (NEGATIVE); NITRITE URINE POSITIVE (NEGATIVE); OCCULT BLOOD URINE 1+ (NEGATIVE); PROTEIN URINE 1+ (NEGATIVE); SPECIFIC GRAVITY URINE 1.055 (1.005-1.030)
[2018-03-16] MEDS: RIFAXIMIN 550 MG TABLET PO SCH ×2 (05:38→17:42)
[2018-03-16 08:57] LABS: BG BASE EXCESS 3.7 mmol/L (-2.0-2.0); BG CARBOXYHEMOGLOBIN 0.3 % (0.5-1.5); BG DEOXYHEMOGLOBIN 4.1 % (0.0-5.0); BG FRACTION INSPIRED OXYGEN 40; BG HCO3 ACT 26.5 mmol/L (22.0-26.0); BG METHEMOGLOBIN 0.3 % (0.0-1.5); BG OXYGEN SATURATION 95.9 % (92.0-98.5); BG OXYHEMOGLOBIN 95.3 % (94.0-97.0); BG PCO2 33.7 mmHg (35.0-45.0); BG PH 7.514 (7.350-7.450); BG PO2 77.6 mmHg (75.0-100.0); BG SAMPLE SITE RIGHT BRACHIAL; BG TIDAL VOLUME(mL) 500 mL; BG TOTAL HEMOGLOBIN 10.5 g/dL (12.0-18.0); BG VENT MODE VENT - A/C; BG VENT RATE 14 set
[2018-03-16] MEDS: LEVOFLOXACIN 500MG PREMIX 100 ML IV SCH (13:03)
[2018-03-16] MEDS: ACETAMINOPHEN 325MG TABLET PO PRN (13:04)
[2018-03-16] MEDS: DEXT 5%/LACTATED RINGERS 1,000 ML IV SCH (13:04)
[2018-03-16 16:12] LABS: CHLORIDE 111 mEq/L (98-107)
[2018-03-16 16:19] LABS: AMMONIA 66 uMol/L (<32)
[2018-03-16] MEDS ORDERED: POTASSIUM CHLORIDE INJ 40 MEQ in DEXT 5% WATER 250 ML IV ONE (17:15)
[2018-03-16] MEDS: KCL 20MEQ/100ML PREMIX 100 ML IV SCH ×2 (17:42→19:53)
[2018-03-16] MEDS ORDERED: POTASSIUM CHLORIDE INJ 40 MEQ in SODIUM CHLORIDE 0.9% 250 ML IV ONE (18:00)
[2018-03-16] MEDS ORDERED: MORPHINE SULFATE 2 MG/ML CPJ (NOT FOR IM USE) IV PRN (19:15)
[2018-03-16] MEDS ORDERED: POTASSIUM CHLORIDE INJ 40 MEQ in SODIUM CHLORIDE 0.9% 250 ML IV PRN (19:45)
[2018-03-16] MEDS ORDERED: KCL 20MEQ/100ML PREMIX 100 ML IV SCH (22:30)
[2018-03-17] VITALS (55 sets, daily range): BP systolic 103–152; BP diastolic 53–111
[2018-03-17] MEDS: MORPHINE SULFATE 4 MG/ML CPJ (NOT FOR IM USE) IV PRN (00:11)
[2018-03-17] MEDS: IPRATROPIUM/ALBUTEROL 0.5-3(2.5)MG/3ML NEB HHN SCH ×6 (00:12→20:00)
[2018-03-17] MEDS ORDERED: KCL 20MEQ/100ML PREMIX 100 ML IV SCH (00:30)
[2018-03-17] MEDS: VANCOMYCIN 1 G PREMIX 200 ML IV SCH (03:07)
[2018-03-17 05:44] LABS: HEMATOCRIT. 30.1 % (42.0-52.0); HEMOGLOBIN. 10.3 g/dL (14.0-18.0); MEAN CORPUSCULAR HEMOGLOBIN 37.2 pg (28.0-32.0); MEAN CORPUSCULAR VOLUME 109.3 fL (80.0-94.0); RED BLOOD CELL COUNT 2.76 mill/uL (4.7-6.1); RED CELL DISTRIBUTION WIDTH 16.1 % (11.6-14.6)
[2018-03-17 06:10] LABS: AMMONIA 68 uMol/L (<32)
[2018-03-17] MEDS: RIFAXIMIN 550 MG TABLET PO SCH ×2 (06:11→17:31)
[2018-03-17 06:14] LABS: CHLORIDE 114 mEq/L (98-107)
[2018-03-17] MEDS ORDERED: LIDOCAINE HCL 2% JELLY 5ML MM NR (08:00)
[2018-03-17 09:04] LABS: BG BASE EXCESS 2.6 mmol/L (-2.0-2.0); BG CARBOXYHEMOGLOBIN 0.3 % (0.5-1.5); BG DEOXYHEMOGLOBIN 4.1 % (0.0-5.0); BG FRACTION INSPIRED OXYGEN 40; BG HCO3 ACT 25.5 mmol/L (22.0-26.0); BG METHEMOGLOBIN 0.3 % (0.0-1.5); BG OXYGEN SATURATION 95.9 % (92.0-98.5); BG OXYHEMOGLOBIN 95.3 % (94.0-97.0); BG PCO2 33.4 mmHg (35.0-45.0); BG PH 7.501 (7.350-7.450); BG PO2 85.1 mmHg (75.0-100.0); BG SAMPLE SITE RIGHT BRACHIAL; BG TIDAL VOLUME(mL) 500 mL; BG TOTAL HEMOGLOBIN 10.4 g/dL (12.0-18.0); BG VENT MODE VENT - A/C; BG VENT RATE 14 set
[2018-03-17 09:30] LABS: PLATELET ESTIMATE DECREASED
[2018-03-17 09:32] LABS: PLATELET 92 x1000/uL (130-400)
[2018-03-17] MEDS: DEXT 5%/LACTATED RINGERS 1,000 ML IV SCH ×2 (12:08→17:31)
[2018-03-17] MEDS: LEVOFLOXACIN 500MG PREMIX 100 ML IV SCH (12:08)
[2018-03-17 17:40] LABS: BG BASE EXCESS 3.5 mmol/L (-2.0-2.0); BG CARBOXYHEMOGLOBIN 0.3 % (0.5-1.5); BG DEOXYHEMOGLOBIN 3.4 % (0.0-5.0); BG FRACTION INSPIRED OXYGEN 40; BG HCO3 ACT 26.2 mmol/L (22.0-26.0); BG METHEMOGLOBIN 0.3 % (0.0-1.5); BG OXYGEN SATURATION 96.6 % (92.0-98.5); BG PCO2 32.5 mmHg (35.0-45.0); BG PH 7.525 (7.350-7.450); BG PO2 85.6 mmHg (75.0-100.0); BG PRESSURE SUPPORT 12; BG SAMPLE SITE RIGHT BRACHIAL; BG TIDAL VOLUME(mL) 500 mL; BG TOTAL HEMOGLOBIN 8.7 g/dL (12.0-18.0); BG VENT MODE VENT - SIMV; BG VENT RATE 10 set
[2018-03-17] MEDS ORDERED: VANCOMYCIN 1500MG in DEXTROSE 5% WATER 250ML IV SCH (18:00)
[2018-03-17] MEDS ORDERED: PANTOPRAZOLE SODIUM 40 MG/VIAL IV NR (20:00)
[2018-03-18] VITALS (52 sets, daily range): BP systolic 98–141; BP diastolic 40–96
[2018-03-18] MEDS: IPRATROPIUM/ALBUTEROL 0.5-3(2.5)MG/3ML NEB HHN SCH ×6 (00:06→20:12)
[2018-03-18] MEDS: RIFAXIMIN 550 MG TABLET PO SCH ×2 (05:24→19:00)
[2018-03-18 05:38] LABS: BASOPHILS % 0.4 % (0.0-2.0); EOSINOPHILS % 1.8 % (0.0-5.0); HEMATOCRIT. 27.2 % (42.0-52.0); HEMOGLOBIN. 9.3 g/dL (14.0-18.0); LYMPHOCYTES % 19.3 % (20.0-50.0); MEAN CORPUSCULAR HEMOGLOBIN 37.2 pg (28.0-32.0); MEAN CORPUSCULAR VOLUME 108.9 fL (80.0-94.0); MONOCYTES % 14.2 % (2.0-8.0); NEUTROPHILS % 64.3 % (40.0-76.0); RED BLOOD CELL COUNT 2.49 mill/uL (4.7-6.1); RED CELL DISTRIBUTION WIDTH 15.9 % (11.6-14.6)
[2018-03-18 05:46] LABS: CHLORIDE 112 mEq/L (98-107)
[2018-03-18 05:50] LABS: AMMONIA 41 uMol/L (<32)
[2018-03-18 08:10] LABS: BG CARBOXYHEMOGLOBIN 0.1 % (0.5-1.5); BG DEOXYHEMOGLOBIN 2.3 % (0.0-5.0); BG HCO3 ACT 23.8 mmol/L (22.0-26.0); BG METHEMOGLOBIN 0.2 % (0.0-1.5); BG OXYGEN SATURATION 97.7 % (92.0-98.5); BG OXYHEMOGLOBIN 97.4 % (94.0-97.0); BG PCO2 31.3 mmHg (35.0-45.0); BG PH 7.499 (7.350-7.450); BG PO2 102.8 mmHg (75.0-100.0); BG SAMPLE SITE LEFT RADIAL; BG TIDAL VOLUME(mL) 500 mL; BG VENT MODE VENT - SIMV; BG VENT RATE 10 set
[2018-03-18] MEDS: PANTOPRAZOLE SODIUM 40 MG/VIAL IV SCH (08:14)
[2018-03-18] MEDS: MORPHINE SULFATE 4 MG/ML CPJ (NOT FOR IM USE) IV PRN ×2 (08:15→21:37)
[2018-03-18 10:20] LABS: MEAN PLATELET VOLUME 8.6 fl (7.4-10.4); PLATELET 74 x1000/uL (130-400)
[2018-03-18] MEDS ORDERED: SODIUM CHLORIDE 0.9% 500 ML IV ONE (12:45)
[2018-03-18] MEDS: DEXT 5%/LACTATED RINGERS 1,000 ML IV SCH (13:30)
[2018-03-18] MEDS: LEVOFLOXACIN 500MG PREMIX 100 ML IV SCH (13:32)
[2018-03-19] VITALS (47 sets, daily range): BP systolic 100–144; BP diastolic 42–90
[2018-03-19] MEDS: IPRATROPIUM/ALBUTEROL 0.5-3(2.5)MG/3ML NEB HHN SCH ×6 (00:05→21:37)
[2018-03-19] MEDS: DEXT 5%/LACTATED RINGERS 1,000 ML IV SCH ×2 (03:57→22:01)
[2018-03-19] MEDS: MORPHINE SULFATE 4 MG/ML CPJ (NOT FOR IM USE) IV PRN (03:58)
[2018-03-19 05:43] LABS: BASOPHILS % 0.5 % (0.0-2.0); HEMATOCRIT. 26.9 % (42.0-52.0); HEMOGLOBIN. 9.4 g/dL (14.0-18.0); MEAN CORPUSCULAR HEMOGLOBIN 37.6 pg (28.0-32.0); MEAN CORPUSCULAR VOLUME 108.3 fL (80.0-94.0); MONOCYTES % 10.5 % (2.0-8.0); RED BLOOD CELL COUNT 2.49 mill/uL (4.7-6.1)
[2018-03-19 06:05] LABS: CHLORIDE 114 mEq/L (98-107)
[2018-03-19] MEDS: RIFAXIMIN 550 MG TABLET PO SCH ×2 (06:30→18:13)
[2018-03-19 07:54] LABS: BG BASE EXCESS 2.1 mmol/L (-2.0-2.0); BG CARBOXYHEMOGLOBIN 0.3 % (0.5-1.5); BG DEOXYHEMOGLOBIN 2.8 % (0.0-5.0); BG HCO3 ACT 25.6 mmol/L (22.0-26.0); BG METHEMOGLOBIN 0.1 % (0.0-1.5); BG OXYGEN SATURATION 97.2 % (92.0-98.5); BG OXYHEMOGLOBIN 96.8 % (94.0-97.0); BG PCO2 35.2 mmHg (35.0-45.0); BG PH 7.479 (7.350-7.450); BG PO2 92.3 mmHg (75.0-100.0); BG SAMPLE SITE RIGHT RADIAL; BG TIDAL VOLUME(mL) 500 mL; BG TOTAL HEMOGLOBIN 9.4 g/dL (12.0-18.0); BG VENT MODE VENT - SIMV; BG VENT RATE 10 set
[2018-03-19] MEDS: PANTOPRAZOLE SODIUM 40 MG/VIAL IV SCH (08:52)
[2018-03-19] MEDS: LEVOFLOXACIN 750MG PREMIX 150 ML IV SCH (10:47)
[2018-03-19 12:21] LABS: PLATELET 66 x1000/uL (130-400)
[2018-03-20] VITALS (48 sets, daily range): BP systolic 89–151; BP diastolic 25–91
[2018-03-20] MEDS: IPRATROPIUM/ALBUTEROL 0.5-3(2.5)MG/3ML NEB HHN SCH ×5 (01:01→20:10)
[2018-03-20] MEDS: RIFAXIMIN 550 MG TABLET PO SCH ×2 (06:03→17:43)
[2018-03-20 06:34] LABS: AMMONIA 82 uMol/L (<32)
[2018-03-20] MEDS: PANTOPRAZOLE SODIUM 40 MG/VIAL IV SCH (08:44)
[2018-03-20 10:09] LABS: BG CARBOXYHEMOGLOBIN 0.1 % (0.5-1.5); BG DEOXYHEMOGLOBIN 4.6 % (0.0-5.0); BG FRACTION INSPIRED OXYGEN 40; BG HCO3 ACT 23.8 mmol/L (22.0-26.0); BG METHEMOGLOBIN 0.1 % (0.0-1.5); BG OXYGEN SATURATION 95.4 % (92.0-98.5); BG OXYHEMOGLOBIN 95.2 % (94.0-97.0); BG PCO2 31.1 mmHg (35.0-45.0); BG PH 7.501 (7.350-7.450); BG PO2 77.4 mmHg (75.0-100.0); BG PRESSURE SUPPORT 8; BG SAMPLE SITE RIGHT RADIAL; BG VENT MODE VENT - CPAP
[2018-03-20] MEDS: LEVOFLOXACIN 750MG PREMIX 150 ML IV SCH (11:17)
[2018-03-20] MEDS: DEXT 5%/LACTATED RINGERS 1,000 ML IV SCH (12:36)
[2018-03-20] MEDS: LACTULOSE 20G/30ML UDC PO SCH (14:59)
[2018-03-21] VITALS (48 sets, daily range): BP systolic 91–146; BP diastolic 24–94
[2018-03-21] MEDS: IPRATROPIUM/ALBUTEROL 0.5-3(2.5)MG/3ML NEB HHN SCH ×7 (00:31→23:57)
[2018-03-21] MEDS: RIFAXIMIN 550 MG TABLET PO SCH ×2 (06:16→18:22)
[2018-03-21] MEDS: DEXT 5%/LACTATED RINGERS 1,000 ML IV SCH (06:16)
[2018-03-21 06:21] LABS: AMMONIA 50 uMol/L (<32)
[2018-03-21] MEDS ORDERED: LIDOCAINE HCL 1% 20ML VIAL (Pyxis) INJ ONE (08:25)
[2018-03-21] MEDS: LACTULOSE 20G/30ML UDC PO SCH (09:22)
[2018-03-21] MEDS: DEXTROSE 5% WATER 1,000 ML IV SCH (09:22)
[2018-03-21] MEDS: PANTOPRAZOLE SODIUM 40 MG/VIAL IV SCH (09:22)
[2018-03-21] MEDS: NAFCILLIN SODIUM 2,000 MG in SODIUM CHLORIDE 0.9% 100 ML IV SCH ×2 (13:26→18:21)
[2018-03-22] VITALS (39 sets, daily range): BP systolic 74–147; BP diastolic 50–94
[2018-03-22] MEDS: NAFCILLIN SODIUM 2,000 MG in SODIUM CHLORIDE 0.9% 100 ML IV SCH ×3 (01:06→11:50)
[2018-03-22] MEDS: DEXTROSE 5% WATER 1,000 ML IV SCH ×2 (01:06→11:50)
[2018-03-22] MEDS: IPRATROPIUM/ALBUTEROL 0.5-3(2.5)MG/3ML NEB HHN SCH ×5 (04:23→20:47)
[2018-03-22 05:09] LABS: BASOPHILS % 0.3 % (0.0-2.0); EOSINOPHILS % 0.6 % (0.0-5.0); HEMATOCRIT. 26.8 % (42.0-52.0); HEMOGLOBIN. 9.2 g/dL (14.0-18.0); LYMPHOCYTES % 9.5 % (20.0-50.0); MEAN CORPUSCULAR HEMOGLOBIN 37.2 pg (28.0-32.0); MEAN CORPUSCULAR VOLUME 108.7 fL (80.0-94.0); MONOCYTES % 5.7 % (2.0-8.0); NEUTROPHILS % 83.9 % (40.0-76.0); RED BLOOD CELL COUNT 2.46 mill/uL (4.7-6.1); RED CELL DISTRIBUTION WIDTH 16.3 % (11.6-14.6)
[2018-03-22 05:29] LABS: PHOSPHORUS 4.4 mg/dL (2.5-4.9)
[2018-03-22] MEDS: RIFAXIMIN 550 MG TABLET PO SCH ×2 (05:52→18:30)
[2018-03-22 06:40] LABS: PLATELET 68 x1000/uL (130-400)
[2018-03-22 06:41] LABS: MEAN PLATELET VOLUME 9.8 fl (7.4-10.4)
[2018-03-22] MEDS ORDERED: FUROSEMIDE 20MG/2ML VIAL IVP NR (07:50)
[2018-03-22] MEDS: PANTOPRAZOLE SODIUM 40 MG/VIAL IV SCH (08:58)
[2018-03-22] MEDS: LACTULOSE 20G/30ML UDC PO SCH (08:58)
[2018-03-22 13:41] LABS: CREATINE KINASE 54 IU/L (39-308)
[2018-03-22 16:51] LABS: AMMONIA 38 uMol/L (<32)
[2018-03-22] MEDS: CEFAZOLIN 2,000 MG in DEXT 5% WATER 100 ML IV SCH (17:00)
[2018-03-23] VITALS (83 sets, daily range): BP systolic 76–171; BP diastolic 33–134
[2018-03-23] MEDS: CEFAZOLIN 2,000 MG in DEXT 5% WATER 100 ML IV SCH ×3 (00:12→21:25)
[2018-03-23] MEDS: IPRATROPIUM/ALBUTEROL 0.5-3(2.5)MG/3ML NEB HHN SCH ×6 (01:10→20:23)
[2018-03-23] MEDS: RIFAXIMIN 550 MG TABLET PO SCH ×2 (05:56→17:22)
[2018-03-23] MEDS ORDERED: LIDOCAINE HCL 1% 20ML VIAL (Pyxis) INJ ONE (08:27)
[2018-03-23 08:50] LABS: HEMATOCRIT. 23.8 % (42.0-52.0); HEMOGLOBIN. 8.2 g/dL (14.0-18.0); MEAN CORPUSCULAR HEMOGLOBIN 37.3 pg (28.0-32.0); RED BLOOD CELL COUNT 2.21 mill/uL (4.7-6.1); RED CELL DISTRIBUTION WIDTH 16.4 % (11.6-14.6)
[2018-03-23 08:58] LABS: AMMONIA 37 uMol/L (<32); INR 1.5; PROTHROMBIN TIME 15.3 sec (9.4-11.6)
[2018-03-23 09:01] LABS: PHOSPHORUS 5.5 mg/dL (2.5-4.9)
[2018-03-23] MEDS: METOCLOPRAMIDE HCL 10MG/2ML VIAL IV SCH ×3 (09:31→17:21)
[2018-03-23] MEDS: LACTULOSE 20G/30ML UDC PO SCH (09:31)
[2018-03-23] MEDS: PANTOPRAZOLE SODIUM 40 MG/VIAL IV SCH (09:31)
[2018-03-23 13:25] LABS: HEPATITIS B SURFACE ANTIGEN NEGATIVE
[2018-03-23 13:53] LABS: HEPATITIS B CORE AB IGM NEGATIVE
[2018-03-23 13:55] LABS: HEPATITIS A AB IGM NEGATIVE (NEGATIVE)
[2018-03-23] MEDS: DEXTROSE 5% WATER 1,000 ML IV SCH ×2 (14:53→17:20)
[2018-03-23] MEDS ORDERED: FUROSEMIDE 40MG/4ML VIAL IVP NR (15:45)
[2018-03-23] MEDS ORDERED: METRONIDAZOLE 500 MG PREMIX 100 ML IV SCH (17:00)
[2018-03-23] MEDS: MIDODRINE HCL 5MG TABLET PO SCH (17:19)
[2018-03-23] MEDS: METRONIDAZOLE 500 MG PREMIX 100 ML IV SCH (17:20)
[2018-03-23] MEDS: NOREPINEPHRINE 4 MG in DEXT 5% WATER 246 ML IV PRN (20:04)
[2018-03-24] VITALS (101 sets, daily range): BP systolic 83–142; BP diastolic 39–78
[2018-03-24] MEDS: IPRATROPIUM/ALBUTEROL 0.5-3(2.5)MG/3ML NEB HHN SCH ×7 (00:40→20:24)
[2018-03-24] MEDS: METOCLOPRAMIDE HCL 10MG/2ML VIAL IV SCH ×5 (00:44→23:16)
[2018-03-24] MEDS: NOREPINEPHRINE 4 MG in DEXT 5% WATER 246 ML IV PRN ×4 (04:21→20:12)
[2018-03-24] MEDS: METRONIDAZOLE 500 MG PREMIX 100 ML IV SCH ×2 (05:11→17:59)
[2018-03-24 05:30] LABS: HEMATOCRIT. 23.9 % (42.0-52.0); HEMOGLOBIN. 8.2 g/dL (14.0-18.0); MEAN CORPUSCULAR HEMOGLOBIN 36.8 pg (28.0-32.0); MEAN CORPUSCULAR VOLUME 107.7 fL (80.0-94.0); RED BLOOD CELL COUNT 2.22 mill/uL (4.7-6.1); RED CELL DISTRIBUTION WIDTH 16.4 % (11.6-14.6)
[2018-03-24 05:57] LABS: AMMONIA 65 uMol/L (<32)
[2018-03-24] MEDS: RIFAXIMIN 550 MG TABLET PO SCH ×2 (07:00→18:00)
[2018-03-24 07:21] LABS: MEAN PLATELET VOLUME 8.9 fl (7.4-10.4); PLATELET 87 x1000/uL (130-400); PLATELET ESTIMATE DECREASED
[2018-03-24] MEDS ORDERED: LIDOCAINE HCL 1% 20ML VIAL (Pyxis) INJ ONE (08:10)
[2018-03-24] MEDS ORDERED: SODIUM BICARBONATE 4% (2.4MEQ) 5ML VIAL IV ONE (08:10)
[2018-03-24] MEDS: PANTOPRAZOLE SODIUM 40 MG/VIAL IV SCH (10:13)
[2018-03-24] MEDS: CEFAZOLIN 2,000 MG in DEXT 5% WATER 100 ML IV SCH (10:13)
[2018-03-24] MEDS: LACTULOSE 20G/30ML UDC PO SCH (10:13)
[2018-03-24] MEDS: MIDODRINE HCL 5MG TABLET PO SCH ×3 (10:14→18:00)
[2018-03-24] MEDS: DEXT 5%/0.45% NACL 1000ML 1,000 ML IV SCH (10:14)
[2018-03-24] MEDS: ACETYLCYSTEINE 100MG/ML 10% VIAL 4ML INH SCH (12:30)
[2018-03-24] MEDS: CEFEPIME 1,000 MG in DEXTROSE 5% WATER 50 ML IV SCH (15:26)
[2018-03-25] VITALS (96 sets, daily range): BP systolic 81–155; BP diastolic 41–90
[2018-03-25] MEDS: IPRATROPIUM/ALBUTEROL 0.5-3(2.5)MG/3ML NEB HHN SCH ×6 (00:05→20:09)
[2018-03-25] MEDS: NOREPINEPHRINE 4 MG in DEXT 5% WATER 246 ML IV PRN ×3 (01:44→12:03)
[2018-03-25] MEDS: DEXT 5%/0.45% NACL 1000ML 1,000 ML IV SCH (02:45)
[2018-03-25] MEDS: METRONIDAZOLE 500 MG PREMIX 100 ML IV SCH ×2 (04:33→16:24)
[2018-03-25] MEDS: METOCLOPRAMIDE HCL 10MG/2ML VIAL IV SCH ×3 (05:08→17:42)
[2018-03-25] MEDS: RIFAXIMIN 550 MG TABLET PO SCH ×2 (05:08→17:42)
[2018-03-25 05:29] LABS: HEMATOCRIT. 24.6 % (42.0-52.0); HEMOGLOBIN. 8.5 g/dL (14.0-18.0); MEAN CORPUSCULAR VOLUME 107.6 fL (80.0-94.0); RED BLOOD CELL COUNT 2.28 mill/uL (4.7-6.1); RED CELL DISTRIBUTION WIDTH 16.5 % (11.6-14.6)
[2018-03-25 05:43] LABS: PHOSPHORUS 3.9 mg/dL (2.5-4.9)
[2018-03-25 07:21] LABS: MEAN PLATELET VOLUME 8.6 fl (7.4-10.4); PLATELET 87 x1000/uL (130-400)
[2018-03-25 07:26] LABS: PLATELET ESTIMATE DECREASED
[2018-03-25] MEDS: ACETYLCYSTEINE 100MG/ML 10% VIAL 4ML INH SCH ×2 (07:35→15:10)
[2018-03-25] MEDS: PANTOPRAZOLE SODIUM 40 MG/VIAL IV SCH ×2 (09:18→21:58)
[2018-03-25] MEDS: MIDODRINE HCL 5MG TABLET PO SCH ×3 (09:18→16:23)
[2018-03-25] MEDS: LACTULOSE 20G/30ML UDC PO SCH (09:18)
[2018-03-25] MEDS ORDERED: GUAIFENESIN 600MG ER TABLET PO SCH (10:00)
[2018-03-25] MEDS ORDERED: GUAIFENESIN 200MG/10ML SUGAR FREE UDC PO SCH (11:45)
[2018-03-25] MEDS ORDERED: GUAIFENESIN PO SCH (12:00)
[2018-03-25] MEDS: GUAIFENESIN 200MG/10ML SUGAR FREE UDC PO SCH ×2 (12:06→21:58)
[2018-03-25] MEDS: CEFEPIME 1,000 MG in DEXTROSE 5% WATER 50 ML IV SCH (14:02)
[2018-03-25] MEDS: NOREPINEPHRINE 8 MG in DEXT 5% WATER 242 ML IV PRN (16:21)
[2018-03-26] VITALS (97 sets, daily range): BP systolic 72–133; BP diastolic 20–98
[2018-03-26] MEDS: IPRATROPIUM/ALBUTEROL 0.5-3(2.5)MG/3ML NEB HHN SCH ×6 (00:03→20:44)
[2018-03-26] MEDS: ACETYLCYSTEINE 100MG/ML 10% VIAL 4ML INH SCH ×3 (00:04→15:13)
[2018-03-26] MEDS: METOCLOPRAMIDE HCL 10MG/2ML VIAL IV SCH ×4 (01:07→17:49)
[2018-03-26] MEDS: METRONIDAZOLE 500 MG PREMIX 100 ML IV SCH ×2 (05:35→16:34)
[2018-03-26] MEDS: DEXT 5%/0.45% NACL 1000ML 1,000 ML IV SCH (05:36)
[2018-03-26] MEDS: NOREPINEPHRINE 8 MG in DEXT 5% WATER 242 ML IV PRN (06:24)
[2018-03-26] MEDS: LACTULOSE 20G/30ML UDC PO SCH (08:27)
[2018-03-26] MEDS: MIDODRINE HCL 5MG TABLET PO SCH ×3 (08:27→17:49)
[2018-03-26] MEDS: PANTOPRAZOLE SODIUM 40 MG/VIAL IV SCH ×2 (08:27→21:53)
[2018-03-26] MEDS: GUAIFENESIN 200MG/10ML SUGAR FREE UDC PO SCH ×2 (11:16→21:53)
[2018-03-26] MEDS: CEFEPIME 1,000 MG in DEXTROSE 5% WATER 50 ML IV SCH (13:05)
[2018-03-27] VITALS (98 sets, daily range): BP systolic 78–145; BP diastolic 43–100
[2018-03-27] MEDS: METOCLOPRAMIDE HCL 10MG/2ML VIAL IV SCH ×4 (00:01→17:15)
[2018-03-27] MEDS: IPRATROPIUM/ALBUTEROL 0.5-3(2.5)MG/3ML NEB HHN SCH ×6 (02:38→20:09)
[2018-03-27] MEDS: ACETYLCYSTEINE 100MG/ML 10% VIAL 4ML INH SCH ×3 (02:38→15:27)
[2018-03-27] MEDS: NOREPINEPHRINE 8 MG in DEXT 5% WATER 242 ML IV PRN ×2 (04:26→16:42)
[2018-03-27] MEDS: METRONIDAZOLE 500 MG PREMIX 100 ML IV SCH ×2 (04:30→16:41)
[2018-03-27] MEDS: DEXT 5%/0.45% NACL 1000ML 1,000 ML IV SCH ×2 (04:36→17:16)
[2018-03-27 06:13] LABS: BASOPHILS % 0.3 % (0.0-2.0); EOSINOPHILS % 0.6 % (0.0-5.0); LYMPHOCYTES % 8.4 % (20.0-50.0); MEAN CORPUSCULAR HEMOGLOBIN 37.5 pg (28.0-32.0); MEAN CORPUSCULAR VOLUME 108.2 fL (80.0-94.0); MONOCYTES % 8.5 % (2.0-8.0); NEUTROPHILS % 82.2 % (40.0-76.0); RED BLOOD CELL COUNT 2.13 mill/uL (4.7-6.1); RED CELL DISTRIBUTION WIDTH 17.4 % (11.6-14.6)
[2018-03-27 09:10] LABS: MEAN PLATELET VOLUME 8.7 fl (7.4-10.4); PLATELET 63 x1000/uL (130-400)
[2018-03-27] MEDS: PANTOPRAZOLE SODIUM 40 MG/VIAL IV SCH ×2 (09:26→21:22)
[2018-03-27] MEDS: GUAIFENESIN 200MG/10ML SUGAR FREE UDC PO SCH ×2 (09:27→21:22)
[2018-03-27] MEDS: LACTULOSE 20G/30ML UDC PO SCH ×2 (09:27→16:41)
[2018-03-27] MEDS: MIDODRINE HCL 5MG TABLET PO SCH ×3 (09:27→22:18)
[2018-03-27] MEDS ORDERED: KCL 20MEQ/100ML PREMIX 100 ML IV SCH (10:00)
[2018-03-27 11:37] LABS: AMMONIA 57 uMol/L (<32)
[2018-03-27 11:46] LABS: INR 2.4; PROTHROMBIN TIME 24.5 sec (9.4-11.6)
[2018-03-27] MEDS: CEFEPIME 1,000 MG in DEXTROSE 5% WATER 50 ML IV SCH (14:44)
[2018-03-27] MEDS: TOTAL PARENTERAL NUTRITION 1,000 ML IV SCH (21:23)
[2018-03-28] VITALS (91 sets, daily range): BP systolic 86–131; BP diastolic 40–78
[2018-03-28] MEDS: IPRATROPIUM/ALBUTEROL 0.5-3(2.5)MG/3ML NEB HHN SCH ×6 (00:09→20:58)
[2018-03-28] MEDS: ACETYLCYSTEINE 100MG/ML 10% VIAL 4ML INH SCH ×3 (00:09→15:49)
[2018-03-28] MEDS: METOCLOPRAMIDE HCL 10MG/2ML VIAL IV SCH ×5 (00:35→23:33)
[2018-03-28] MEDS: NOREPINEPHRINE 8 MG in DEXT 5% WATER 242 ML IV PRN ×2 (00:35→13:55)
[2018-03-28] MEDS: BLOOD SUGAR DIAGNOSTIC STRIP TEST SCH ×5 (00:35→23:33)
[2018-03-28] MEDS: MIDODRINE HCL 5MG TABLET PO SCH ×3 (05:58→21:00)
[2018-03-28] MEDS: METRONIDAZOLE 500 MG PREMIX 100 ML IV SCH ×2 (05:58→17:14)
[2018-03-28 06:20] LABS: BASOPHILS % 0.2 % (0.0-2.0); EOSINOPHILS % 1.3 % (0.0-5.0); HEMATOCRIT. 23.2 % (42.0-52.0); LYMPHOCYTES % 12.1 % (20.0-50.0); MEAN CORPUSCULAR VOLUME 109.5 fL (80.0-94.0); MONOCYTES % 9.8 % (2.0-8.0); NEUTROPHILS % 76.6 % (40.0-76.0); PLATELET 66 x1000/uL (130-400); RED BLOOD CELL COUNT 2.12 mill/uL (4.7-6.1); RED CELL DISTRIBUTION WIDTH 18.1 % (11.6-14.6)
[2018-03-28 06:35] LABS: AMMONIA 42 uMol/L (<32)
[2018-03-28 06:38] LABS: PHOSPHORUS 2.4 mg/dL (2.5-4.9)
[2018-03-28 06:49] LABS: HEPATITIS B SURFACE ANTIGEN NEGATIVE
[2018-03-28 07:17] LABS: HEPATITIS B CORE AB IGM NEGATIVE
[2018-03-28 07:19] LABS: HEPATITIS A AB IGM NEGATIVE (NEGATIVE)
[2018-03-28] MEDS: GUAIFENESIN 200MG/10ML SUGAR FREE UDC PO SCH ×2 (09:23→20:59)
[2018-03-28] MEDS: PANTOPRAZOLE SODIUM 40 MG/VIAL IV SCH ×2 (09:23→20:59)
[2018-03-28] MEDS: LACTULOSE 20G/30ML UDC PO SCH ×2 (09:23→17:14)
[2018-03-28] MEDS ORDERED: TOTAL PARENTERAL NUTRITION IV SCH ×2 (10:30→21:00)
[2018-03-28 11:40] LABS: INR 2.1; PROTHROMBIN TIME 22.3 sec (9.4-11.6)
[2018-03-28] MEDS: TOTAL PARENTERAL NUTRITION 1,000 ML IV SCH (12:24)
[2018-03-28] MEDS: INSULIN LISPRO 100 UNITS/ML SUBCUT SCH ×4 (13:35→23:36)
[2018-03-28] MEDS: CEFEPIME 1,000 MG in DEXTROSE 5% WATER 50 ML IV SCH (13:49)
[2018-03-28] MEDS: FAT EMULSIONS 500 ML IV SCH (21:00)
[2018-03-29] VITALS (101 sets, daily range): BP systolic 64–151; BP diastolic 29–87
[2018-03-29] MEDS: ACETYLCYSTEINE 100MG/ML 10% VIAL 4ML INH SCH ×3 (00:03→14:00)
[2018-03-29] MEDS: IPRATROPIUM/ALBUTEROL 0.5-3(2.5)MG/3ML NEB HHN SCH ×6 (00:03→20:12)
[2018-03-29] MEDS: NOREPINEPHRINE 8 MG in DEXT 5% WATER 242 ML IV PRN (03:44)
[2018-03-29] MEDS: METRONIDAZOLE 500 MG PREMIX 100 ML IV SCH ×2 (05:20→17:32)
[2018-03-29] MEDS ORDERED: DILTIAZEM HCL 5MG/ML 5ML VIAL IV SCH (06:06)
[2018-03-29] MEDS: METOCLOPRAMIDE HCL 10MG/2ML VIAL IV SCH ×3 (06:07→17:33)
[2018-03-29] MEDS: INSULIN LISPRO 100 UNITS/ML SUBCUT SCH ×4 (06:08→21:00)
[2018-03-29] MEDS: BLOOD SUGAR DIAGNOSTIC STRIP TEST SCH ×3 (06:08→17:33)
[2018-03-29] MEDS: MIDODRINE HCL 5MG TABLET PO SCH ×3 (06:08→21:33)
[2018-03-29] MEDS ORDERED: DILTIAZEM HCL 5MG/ML 5ML VIAL IV ONE (06:45)
[2018-03-29 07:19] LABS: INR 1.8; PROTHROMBIN TIME 19.1 sec (9.4-11.6)
[2018-03-29 07:20] LABS: HEMATOCRIT 23.3 % (42.0-52.0); HEMOGLOBIN 8.1 g/dL (14.0-18.0); MEAN CORPUSCULAR HEMOGLOBIN 37.3 pg (28.0-32.0); MEAN CORPUSCULAR VOLUME 107.8 fL (80.0-94.0); PLATELET 51 x1000/uL (130-400); RED BLOOD CELL COUNT 2.16 mill/uL (4.7-6.1); RED CELL DISTRIBUTION WIDTH 17.8 % (11.6-14.6)
[2018-03-29] MEDS ORDERED: SODIUM BICARBONATE 4% (2.4MEQ) 5ML VIAL IV ONE (07:49)
[2018-03-29] MEDS ORDERED: LIDOCAINE HCL/PF 1% 10 MG/ML 5ML VIAL ONE (07:49)
[2018-03-29] MEDS: PANTOPRAZOLE SODIUM 40 MG/VIAL IV SCH ×2 (10:18→21:32)
[2018-03-29] MEDS: LACTULOSE 20G/30ML UDC PO SCH ×2 (10:18→17:33)
[2018-03-29] MEDS: GUAIFENESIN 200MG/10ML SUGAR FREE UDC PO SCH ×2 (10:20→21:32)
[2018-03-29] MEDS: CEFEPIME 1,000 MG in DEXTROSE 5% WATER 50 ML IV SCH (14:28)
[2018-03-29] MEDS ORDERED: DIATR MEGLU/DIATRIZOATE SOLN 120ML ONE (16:36)
[2018-03-29] MEDS: TOTAL PARENTERAL NUTRITION IV SCH (21:34)
[2018-03-30] VITALS (64 sets, daily range): BP systolic 85–139; BP diastolic 50–95
[2018-03-30] MEDS: IPRATROPIUM/ALBUTEROL 0.5-3(2.5)MG/3ML NEB HHN SCH ×5 (00:18→15:20)
[2018-03-30] MEDS: METOCLOPRAMIDE HCL 10MG/2ML VIAL IV SCH ×5 (00:35→23:03)
[2018-03-30] MEDS: BLOOD SUGAR DIAGNOSTIC STRIP TEST SCH ×5 (00:35→22:59)
[2018-03-30 05:47] LABS: HEMATOCRIT. 23.2 % (42.0-52.0); MEAN CORPUSCULAR HEMOGLOBIN 37.1 pg (28.0-32.0); MEAN CORPUSCULAR VOLUME 107.4 fL (80.0-94.0); RED BLOOD CELL COUNT 2.16 mill/uL (4.7-6.1)
[2018-03-30 06:24] LABS: PLATELET 38 x1000/uL (130-400)
[2018-03-30] MEDS: METRONIDAZOLE 500 MG PREMIX 100 ML IV SCH ×2 (06:57→17:58)
[2018-03-30] MEDS: MIDODRINE HCL 5MG TABLET PO SCH (07:06)
[2018-03-30] MEDS: INSULIN LISPRO 100 UNITS/ML SUBCUT SCH ×4 (07:06→23:04)
[2018-03-30] MEDS: LACTULOSE 20G/30ML UDC PO SCH (09:11)
[2018-03-30] MEDS: PANTOPRAZOLE SODIUM 40 MG/VIAL IV SCH ×2 (09:11→21:24)
[2018-03-30] MEDS: GUAIFENESIN 200MG/10ML SUGAR FREE UDC PO SCH ×2 (09:11→21:24)
[2018-03-30 10:24] LABS: PLATELET ESTIMATE MARKEDLY DECREASED
[2018-03-30] MEDS: CEFEPIME 1,000 MG in DEXTROSE 5% WATER 50 ML IV SCH (14:22)
[2018-03-30] MEDS: TOTAL PARENTERAL NUTRITION IV SCH ×2 (18:00→21:28)
[2018-03-30 19:34] LABS: AMMONIA 38 uMol/L (<32)
[2018-03-30] MEDS ORDERED: INSULIN LISPRO 100 UNITS/ML SUBCUT SCH (20:30)
[2018-03-31] VITALS (48 sets, daily range): BP systolic 93–147; BP diastolic 23–97
[2018-03-31] MEDS: IPRATROPIUM/ALBUTEROL 0.5-3(2.5)MG/3ML NEB HHN SCH ×6 (00:01→20:40)
[2018-03-31] MEDS: BLOOD SUGAR DIAGNOSTIC STRIP TEST SCH ×4 (05:25→23:27)
[2018-03-31 05:38] LABS: HEMATOCRIT. 22.3 % (42.0-52.0); HEMOGLOBIN. 7.8 g/dL (14.0-18.0); MEAN CORPUSCULAR HEMOGLOBIN 37.3 pg (28.0-32.0); MEAN CORPUSCULAR VOLUME 106.8 fL (80.0-94.0); MEAN PLATELET VOLUME 8.4 fl (7.4-10.4); RED BLOOD CELL COUNT 2.09 mill/uL (4.7-6.1); RED CELL DISTRIBUTION WIDTH 17.4 % (11.6-14.6)
[2018-03-31] MEDS: INSULIN LISPRO 100 UNITS/ML SUBCUT SCH ×4 (06:00→23:28)
[2018-03-31] MEDS: METOCLOPRAMIDE HCL 10MG/2ML VIAL IV SCH ×4 (06:26→23:34)
[2018-03-31] MEDS: METRONIDAZOLE 500 MG PREMIX 100 ML IV SCH ×2 (06:26→17:06)
[2018-03-31 06:34] LABS: PLATELET 37 x1000/uL (130-400)
[2018-03-31] MEDS ORDERED: BLOOD SUGAR DIAGNOSTIC STRIP TEST SCH (09:00)
[2018-03-31 09:16] LABS: PLATELET ESTIMATE MARKEDLY DECREASED
[2018-03-31] MEDS: PANTOPRAZOLE SODIUM 40 MG/VIAL IV SCH ×2 (09:18→20:14)
[2018-03-31] MEDS: GUAIFENESIN 200MG/10ML SUGAR FREE UDC PO SCH (09:20)
[2018-03-31] MEDS: CEFEPIME 1,000 MG in DEXTROSE 5% WATER 50 ML IV SCH (14:13)
[2018-03-31] MEDS: TOTAL PARENTERAL NUTRITION IV SCH (20:16)
[2018-03-31] MEDS ORDERED: TOTAL PARENTERAL NUTRITION IV SCH (21:00)
[2018-04-01] VITALS (71 sets, daily range): BP systolic 70–144; BP diastolic 13–92
[2018-04-01] MEDS: IPRATROPIUM/ALBUTEROL 0.5-3(2.5)MG/3ML NEB HHN SCH ×5 (00:32→20:12)
[2018-04-01] MEDS: METOCLOPRAMIDE HCL 10MG/2ML VIAL IV SCH ×4 (05:20→23:42)
[2018-04-01] MEDS: BLOOD SUGAR DIAGNOSTIC STRIP TEST SCH ×3 (05:20→18:29)
[2018-04-01] MEDS: INSULIN LISPRO 100 UNITS/ML SUBCUT SCH ×3 (05:20→18:00)
[2018-04-01] MEDS: METRONIDAZOLE 500 MG PREMIX 100 ML IV SCH ×2 (05:20→17:01)
[2018-04-01 06:03] LABS: BASOPHILS % 0.3 % (0.0-2.0); EOSINOPHILS % 1.9 % (0.0-5.0); HEMATOCRIT. 22.4 % (42.0-52.0); HEMOGLOBIN. 7.8 g/dL (14.0-18.0); LYMPHOCYTES % 8.3 % (20.0-50.0); MEAN CORPUSCULAR HEMOGLOBIN 37.3 pg (28.0-32.0); MEAN CORPUSCULAR VOLUME 106.5 fL (80.0-94.0); MEAN PLATELET VOLUME 9.6 fl (7.4-10.4); MONOCYTES % 9.5 % (2.0-8.0); RED BLOOD CELL COUNT 2.11 mill/uL (4.7-6.1); RED CELL DISTRIBUTION WIDTH 17.9 % (11.6-14.6)
[2018-04-01 06:19] LABS: PLATELET 39 x1000/uL (130-400)
[2018-04-01] MEDS: NOREPINEPHRINE 8 MG in DEXT 5% WATER 242 ML IV PRN (09:44)
[2018-04-01 12:12] LABS: HEMATOCRIT 22.9 % (42.0-52.0); HEMOGLOBIN 8.2 g/dL (14.0-18.0)
[2018-04-01] MEDS: PANTOPRAZOLE SODIUM 40 MG/VIAL IV SCH ×2 (12:23→20:23)
[2018-04-01] MEDS: CEFEPIME 1,000 MG in DEXTROSE 5% WATER 50 ML IV SCH (14:19)
[2018-04-01] MEDS ORDERED: TOTAL PARENTERAL NUTRITION IV SCH (21:00)
[2018-04-01] MEDS ORDERED: FAT EMULSIONS 500 ML IV SCH (21:00)
[2018-04-02] VITALS (11 sets, daily range): BP systolic 92–131; BP diastolic 38–78
[2018-04-02] MEDS: IPRATROPIUM/ALBUTEROL 0.5-3(2.5)MG/3ML NEB HHN SCH ×7 (00:15→23:57)
[2018-04-02] MEDS: METRONIDAZOLE 500 MG PREMIX 100 ML IV SCH ×2 (04:36→17:00)
[2018-04-02] MEDS: METOCLOPRAMIDE HCL 10MG/2ML VIAL IV SCH ×4 (05:37→23:19)
[2018-04-02] MEDS: BLOOD SUGAR DIAGNOSTIC STRIP TEST SCH ×5 (05:37→23:23)
[2018-04-02] MEDS: INSULIN LISPRO 100 UNITS/ML SUBCUT SCH ×4 (05:38→18:00)
[2018-04-02 07:34] LABS: AMMONIA 27 uMol/L (<32)
[2018-04-02] MEDS: PANTOPRAZOLE SODIUM 40 MG/VIAL IV SCH ×2 (09:43→21:00)
[2018-04-02] MEDS: CEFEPIME 1,000 MG in DEXTROSE 5% WATER 50 ML IV SCH (15:55)
[2018-04-02] MEDS ORDERED: TOTAL PARENTERAL NUTRITION IV SCH (21:00)
[2018-04-03] VITALS (12 sets, daily range): BP systolic 95–126; BP diastolic 42–81
[2018-04-03] MEDS: IPRATROPIUM/ALBUTEROL 0.5-3(2.5)MG/3ML NEB HHN SCH ×5 (04:24→21:10)
[2018-04-03] MEDS: BLOOD SUGAR DIAGNOSTIC STRIP TEST SCH ×3 (06:00→18:29)
[2018-04-03] MEDS: INSULIN LISPRO 100 UNITS/ML SUBCUT SCH ×4 (06:00→18:00)
[2018-04-03] MEDS: METOCLOPRAMIDE HCL 10MG/2ML VIAL IV SCH ×3 (06:00→18:29)
[2018-04-03] MEDS: METRONIDAZOLE 500 MG PREMIX 100 ML IV SCH ×2 (07:25→17:00)
[2018-04-03] MEDS: PANTOPRAZOLE SODIUM 40 MG/VIAL IV SCH ×2 (10:13→21:13)
[2018-04-03] MEDS ORDERED: HEPARIN 5000 UNITS/ML VIAL IV NR (12:00)
[2018-04-03] MEDS: CEFEPIME 1,000 MG in DEXTROSE 5% WATER 50 ML IV SCH (14:00)
[2018-04-03] MEDS ORDERED: TOTAL PARENTERAL NUTRITION IV SCH (21:00)
[2018-04-04] VITALS (11 sets, daily range): BP systolic 92–112; BP diastolic 56–66
[2018-04-04] MEDS: IPRATROPIUM/ALBUTEROL 0.5-3(2.5)MG/3ML NEB HHN SCH ×6 (01:16→20:54)
[2018-04-04] MEDS: METOCLOPRAMIDE HCL 10MG/2ML VIAL IV SCH ×4 (01:56→18:08)
[2018-04-04] MEDS: INSULIN LISPRO 100 UNITS/ML SUBCUT SCH ×4 (06:00→18:00)
[2018-04-04] MEDS: METRONIDAZOLE 500 MG PREMIX 100 ML IV SCH ×2 (06:31→18:49)
[2018-04-04] MEDS: BLOOD SUGAR DIAGNOSTIC STRIP TEST SCH ×4 (06:31→18:09)
[2018-04-04] MEDS: PANTOPRAZOLE SODIUM 40 MG/VIAL IV SCH ×2 (09:48→21:30)
[2018-04-04 10:29] LABS: PHOSPHORUS 3.4 mg/dL (2.5-4.9)
[2018-04-04] MEDS: CEFEPIME 1,000 MG in DEXTROSE 5% WATER 50 ML IV SCH (15:32)
[2018-04-04 16:13] LABS: AMMONIA 20 uMol/L (<32)
[2018-04-04 16:30] LABS: INR 1.9; PROTHROMBIN TIME 19.7 sec (9.4-11.6)
[2018-04-04] MEDS: RIFAXIMIN 550 MG TABLET PO SCH ×2 (18:52→21:30)
[2018-04-04] MEDS ORDERED: TOTAL PARENTERAL NUTRITION IV SCH (21:00)
[2018-04-04] MEDS: FAT EMULSIONS 500 ML IV SCH (21:30)
[2018-04-05] VITALS (11 sets, daily range): BP systolic 78–119; BP diastolic 43–69
[2018-04-05] MEDS: IPRATROPIUM/ALBUTEROL 0.5-3(2.5)MG/3ML NEB HHN SCH ×5 (00:51→16:54)
[2018-04-05] MEDS: BLOOD SUGAR DIAGNOSTIC STRIP TEST SCH ×5 (00:54→23:44)
[2018-04-05] MEDS: METOCLOPRAMIDE HCL 10MG/2ML VIAL IV SCH ×5 (00:54→23:43)
[2018-04-05] MEDS: METRONIDAZOLE 500 MG PREMIX 100 ML IV SCH ×2 (05:40→16:28)
[2018-04-05] MEDS: INSULIN LISPRO 100 UNITS/ML SUBCUT SCH ×5 (05:49→23:44)
[2018-04-05] MEDS: RIFAXIMIN 550 MG TABLET PO SCH ×2 (08:33→23:43)
[2018-04-05] MEDS: PANTOPRAZOLE SODIUM 40 MG/VIAL IV SCH ×2 (08:33→23:43)
[2018-04-05] MEDS: CEFEPIME 1,000 MG in DEXTROSE 5% WATER 50 ML IV SCH (14:20)
[2018-04-05] MEDS ORDERED: ALBUMIN HUMAN 25GM/100ML (25%) IV NR (16:30)
[2018-04-05 17:02] LABS: MEAN CORPUSCULAR HEMOGLOBIN 37.5 pg (28.0-32.0); MEAN CORPUSCULAR VOLUME 109.2 fL (80.0-94.0); RED BLOOD CELL COUNT 1.72 mill/uL (4.7-6.1); RED CELL DISTRIBUTION WIDTH 19.5 % (11.6-14.6)
[2018-04-05 17:07] LABS: INR 2.5; PARTIAL THROMBOPLASTIN TIME 63.3 sec (23.4-31.0); PROTHROMBIN TIME 26.7 sec (9.4-11.6)
[2018-04-05 17:10] LABS: HEMOGLOBIN 6.4 g/dL (14.0-18.0)
[2018-04-05 17:11] LABS: HEMATOCRIT 18.7 % (42.0-52.0); PLATELET 28 x1000/uL (130-400)
[2018-04-05] MEDS ORDERED: PHYTONADIONE 10MG/ML AMP SUBCUT NR (17:15)
[2018-04-05 17:17] LABS: PHOSPHORUS 3.8 mg/dL (2.5-4.9)
[2018-04-05] MEDS: SODIUM CHLORIDE 0.9% 1,000 ML IV SCH (18:13)
[2018-04-05] MEDS: TOTAL PARENTERAL NUTRITION IV SCH (21:59)
[2018-04-06] VITALS (28 sets, daily range): BP systolic 92–115; BP diastolic 47–79
[2018-04-06] MEDS: IPRATROPIUM/ALBUTEROL 0.5-3(2.5)MG/3ML NEB HHN SCH ×6 (01:55→20:10)
[2018-04-06] MEDS: SODIUM CHLORIDE 0.9% 1,000 ML IV SCH ×2 (03:45→18:37)
[2018-04-06] MEDS: BLOOD SUGAR DIAGNOSTIC STRIP TEST SCH ×4 (05:46→23:21)
[2018-04-06] MEDS: INSULIN LISPRO 100 UNITS/ML SUBCUT SCH ×4 (05:46→23:21)
[2018-04-06] MEDS: METOCLOPRAMIDE HCL 10MG/2ML VIAL IV SCH ×4 (06:02→23:21)
[2018-04-06] MEDS: RIFAXIMIN 550 MG TABLET PO SCH ×3 (09:00→20:52)
[2018-04-06 09:15] LABS: AMMONIA 23 uMol/L (<32)
[2018-04-06 09:17] LABS: MEAN CORPUSCULAR HEMOGLOBIN 36.4 pg (28.0-32.0); MEAN CORPUSCULAR VOLUME 103.7 fL (80.0-94.0); RED BLOOD CELL COUNT 1.87 mill/uL (4.7-6.1); RED CELL DISTRIBUTION WIDTH 22.4 % (11.6-14.6)
[2018-04-06 09:19] LABS: HEMATOCRIT 19.4 % (42.0-52.0); HEMOGLOBIN 6.8 g/dL (14.0-18.0); PLATELET 43 x1000/uL (130-400)
[2018-04-06 09:46] LABS: INR 1.8; PARTIAL THROMBOPLASTIN TIME 42.6 sec (23.4-31.0); PROTHROMBIN TIME 18.7 sec (9.4-11.6)
[2018-04-06] MEDS: PANTOPRAZOLE SODIUM 40 MG/VIAL IV SCH ×2 (09:55→20:58)
[2018-04-06 10:35] LABS: PHOSPHORUS 3.6 mg/dL (2.5-4.9)
[2018-04-06] MEDS: CEFEPIME 1,000 MG in DEXTROSE 5% WATER 50 ML IV SCH (13:18)
[2018-04-06] MEDS: TOTAL PARENTERAL NUTRITION IV SCH ×2 (20:52→21:00)
[2018-04-07] VITALS (12 sets, daily range): BP systolic 94–129; BP diastolic 27–76
[2018-04-07] MEDS: IPRATROPIUM/ALBUTEROL 0.5-3(2.5)MG/3ML NEB HHN SCH ×6 (04:48→20:31)
[2018-04-07] MEDS: BLOOD SUGAR DIAGNOSTIC STRIP TEST SCH ×4 (05:55→23:47)
[2018-04-07] MEDS: INSULIN LISPRO 100 UNITS/ML SUBCUT SCH ×4 (05:55→23:47)
[2018-04-07] MEDS: METOCLOPRAMIDE HCL 10MG/2ML VIAL IV SCH ×4 (05:55→23:47)
[2018-04-07] MEDS: RIFAXIMIN 550 MG TABLET PO SCH ×2 (08:43→20:38)
[2018-04-07] MEDS: PANTOPRAZOLE SODIUM 40 MG/VIAL IV SCH ×2 (08:51→20:42)
[2018-04-07] MEDS ORDERED: TOTAL PARENTERAL NUTRITION IV SCH ×2 (10:00→21:00)
[2018-04-07 15:40] LABS: BASOPHILS % 0.6 % (0.0-2.0); EOSINOPHILS % 1.1 % (0.0-5.0); HEMATOCRIT. 23.7 % (42.0-52.0); HEMOGLOBIN. 8.5 g/dL (14.0-18.0); LYMPHOCYTES % 11.7 % (20.0-50.0); MEAN CORPUSCULAR HEMOGLOBIN 35.9 pg (28.0-32.0); MEAN CORPUSCULAR VOLUME 100.2 fL (80.0-94.0); MEAN PLATELET VOLUME 10.5 fl (7.4-10.4); MONOCYTES % 9.6 % (2.0-8.0); RED BLOOD CELL COUNT 2.37 mill/uL (4.7-6.1); RED CELL DISTRIBUTION WIDTH 22.8 % (11.6-14.6)
[2018-04-07 15:54] LABS: PLATELET 36 x1000/uL (130-400)
[2018-04-07] MEDS: TOTAL PARENTERAL NUTRITION IV SCH (20:42)
[2018-04-08] VITALS (15 sets, daily range): BP systolic 108–129; BP diastolic 62–86
[2018-04-08] MEDS: IPRATROPIUM/ALBUTEROL 0.5-3(2.5)MG/3ML NEB HHN SCH ×6 (01:16→20:36)
[2018-04-08] MEDS: METOCLOPRAMIDE HCL 10MG/2ML VIAL IV SCH ×3 (05:31→18:09)
[2018-04-08] MEDS: BLOOD SUGAR DIAGNOSTIC STRIP TEST SCH ×3 (05:31→17:09)
[2018-04-08] MEDS: INSULIN LISPRO 100 UNITS/ML SUBCUT SCH ×3 (05:32→17:09)
[2018-04-08] MEDS: PANTOPRAZOLE SODIUM 40 MG/VIAL IV SCH ×2 (09:43→20:43)
[2018-04-08] MEDS: RIFAXIMIN 550 MG TABLET PO SCH ×2 (09:43→20:45)
[2018-04-08 16:19] LABS: HEMATOCRIT 23.7 % (42.0-52.0); HEMOGLOBIN 8.4 g/dL (14.0-18.0); MEAN CORPUSCULAR HEMOGLOBIN 35.9 pg (28.0-32.0); MEAN CORPUSCULAR VOLUME 100.8 fL (80.0-94.0); RED BLOOD CELL COUNT 2.35 mill/uL (4.7-6.1); RED CELL DISTRIBUTION WIDTH 22.4 % (11.6-14.6)
[2018-04-08 16:28] LABS: INR 1.8; PARTIAL THROMBOPLASTIN TIME 41.5 sec (23.4-31.0); PROTHROMBIN TIME 18.6 sec (9.4-11.6)
[2018-04-08 16:40] LABS: PHOSPHORUS 4.4 mg/dL (2.5-4.9)
[2018-04-08 16:47] LABS: PLATELET 44 x1000/uL (130-400)
[2018-04-08] MEDS: TOTAL PARENTERAL NUTRITION IV SCH (20:44)
[2018-04-09] VITALS (27 sets, daily range): BP systolic 92–127; BP diastolic 45–90
[2018-04-09] MEDS: METOCLOPRAMIDE HCL 10MG/2ML VIAL IV SCH ×4 (00:07→18:05)
[2018-04-09] MEDS: IPRATROPIUM/ALBUTEROL 0.5-3(2.5)MG/3ML NEB HHN SCH ×5 (00:26→21:35)
[2018-04-09] MEDS: INSULIN LISPRO 100 UNITS/ML SUBCUT SCH ×4 (05:43→18:00)
[2018-04-09] MEDS: BLOOD SUGAR DIAGNOSTIC STRIP TEST SCH ×4 (05:43→18:05)
[2018-04-09 07:01] LABS: BASOPHILS % 0.6 % (0.0-2.0); EOSINOPHILS % 0.9 % (0.0-5.0); HEMATOCRIT. 22.9 % (42.0-52.0); HEMOGLOBIN. 8.2 g/dL (14.0-18.0); LYMPHOCYTES % 12.3 % (20.0-50.0); MEAN CORPUSCULAR HEMOGLOBIN 35.8 pg (28.0-32.0); MEAN CORPUSCULAR VOLUME 100.4 fL (80.0-94.0); MEAN PLATELET VOLUME 9.8 fl (7.4-10.4); MONOCYTES % 10.4 % (2.0-8.0); NEUTROPHILS % 75.8 % (40.0-76.0); PLATELET 59 x1000/uL (130-400); RED BLOOD CELL COUNT 2.28 mill/uL (4.7-6.1); RED CELL DISTRIBUTION WIDTH 21.8 % (11.6-14.6)
[2018-04-09 07:09] LABS: INR 1.5; PARTIAL THROMBOPLASTIN TIME 35.7 sec (23.4-31.0); PROTHROMBIN TIME 15.7 sec (9.4-11.6)
[2018-04-09] MEDS ORDERED: LIDOCAINE HCL/PF 1% 10 MG/ML 5ML VIAL ONE (08:01)
[2018-04-09] MEDS ORDERED: SODIUM BICARBONATE 4% (2.4MEQ) 5ML VIAL IV ONE (08:01)
[2018-04-09 11:12] LABS: PLATELET ESTIMATE MARKEDLY DECREASED
[2018-04-09] MEDS: PANTOPRAZOLE SODIUM 40 MG/VIAL IV SCH ×2 (11:31→20:51)
[2018-04-09] MEDS: RIFAXIMIN 550 MG TABLET PO SCH ×2 (11:31→20:51)
[2018-04-09 12:18] LABS: BASOPHILS % 0.5 % (0.0-2.0); HEMATOCRIT. 24.5 % (42.0-52.0); HEMOGLOBIN. 8.5 g/dL (14.0-18.0); LYMPHOCYTES % 22.6 % (20.0-50.0); MEAN CORPUSCULAR HEMOGLOBIN 35.7 pg (28.0-32.0); MEAN PLATELET VOLUME 9.7 fl (7.4-10.4); MONOCYTES % 11.1 % (2.0-8.0); NEUTROPHILS % 64.8 % (40.0-76.0); PLATELET 67 x1000/uL (130-400); RED CELL DISTRIBUTION WIDTH 22.3 % (11.6-14.6)
[2018-04-09] MEDS ORDERED: TOTAL PARENTERAL NUTRITION IV SCH (21:00)
[2018-04-09] MEDS: TOTAL PARENTERAL NUTRITION IV SCH (21:44)
[2018-04-10] VITALS (12 sets, daily range): BP systolic 95–134; BP diastolic 53–83
[2018-04-10] MEDS: BLOOD SUGAR DIAGNOSTIC STRIP TEST SCH
[2018-04-10] MEDS: IPRATROPIUM/ALBUTEROL 0.5-3(2.5)MG/3ML NEB HHN SCH ×6 (00:40→21:20)
[2018-04-10] MEDS: METOCLOPRAMIDE HCL 10MG/2ML VIAL IV SCH ×4 (00:41→18:26)
[2018-04-10] MEDS: INSULIN LISPRO 100 UNITS/ML SUBCUT SCH ×4 (05:31→18:00)
[2018-04-10 07:03] LABS: BASOPHILS % 0.4 % (0.0-2.0); EOSINOPHILS % 0.9 % (0.0-5.0); HEMOGLOBIN. 7.9 g/dL (14.0-18.0); LYMPHOCYTES % 13.4 % (20.0-50.0); MEAN CORPUSCULAR HEMOGLOBIN 36.4 pg (28.0-32.0); MEAN CORPUSCULAR VOLUME 101.4 fL (80.0-94.0); MEAN PLATELET VOLUME 10.3 fl (7.4-10.4); MONOCYTES % 10.3 % (2.0-8.0); RED BLOOD CELL COUNT 2.17 mill/uL (4.7-6.1); RED CELL DISTRIBUTION WIDTH 22.3 % (11.6-14.6)
[2018-04-10] MEDS: PANTOPRAZOLE SODIUM 40 MG/VIAL IV SCH ×2 (09:51→21:15)
[2018-04-10] MEDS: RIFAXIMIN 550 MG TABLET PO SCH ×2 (09:51→21:15)
[2018-04-10 13:44] LABS: PLATELET 40 x1000/uL (130-400)
[2018-04-10] MEDS ORDERED: EPOETIN ALFA 10000UNITS/ML VIAL SUBCUT SCH (21:00)
[2018-04-10] MEDS: EPOETIN ALFA 10000UNITS/ML VIAL SUBCUT SCH (21:00)
[2018-04-10] MEDS ORDERED: TOTAL PARENTERAL NUTRITION IV SCH (21:00)
[2018-04-11] VITALS (17 sets, daily range): BP systolic 88–134; BP diastolic 50–83
[2018-04-11] MEDS: IPRATROPIUM/ALBUTEROL 0.5-3(2.5)MG/3ML NEB HHN SCH ×5 (01:15→20:28)
[2018-04-11] MEDS: METOCLOPRAMIDE HCL 10MG/2ML VIAL IV SCH ×5 (01:22→23:32)
[2018-04-11] MEDS: INSULIN LISPRO 100 UNITS/ML SUBCUT SCH ×5 (06:00→23:36)
[2018-04-11 07:25] LABS: BASOPHILS % 0.5 % (0.0-2.0); EOSINOPHILS % 1.5 % (0.0-5.0); HEMATOCRIT. 22.1 % (42.0-52.0); HEMOGLOBIN. 7.8 g/dL (14.0-18.0); LYMPHOCYTES % 14.3 % (20.0-50.0); MEAN CORPUSCULAR HEMOGLOBIN 35.9 pg (28.0-32.0); MEAN CORPUSCULAR VOLUME 102.2 fL (80.0-94.0); MONOCYTES % 11.5 % (2.0-8.0); NEUTROPHILS % 72.2 % (40.0-76.0); RED BLOOD CELL COUNT 2.16 mill/uL (4.7-6.1); RED CELL DISTRIBUTION WIDTH 21.9 % (11.6-14.6)
[2018-04-11 08:34] LABS: PHOSPHORUS 3.8 mg/dL (2.5-4.9)
[2018-04-11] MEDS: RIFAXIMIN 550 MG TABLET PO SCH ×2 (08:48→22:03)
[2018-04-11] MEDS: PANTOPRAZOLE SODIUM 40 MG/VIAL IV SCH ×2 (09:19→22:01)
[2018-04-11] MEDS: SIMETHICONE 80MG TABLET CHEW PO SCH ×3 (12:25→22:01)
[2018-04-11 13:22] LABS: PLATELET 45 x1000/uL (130-400)
[2018-04-11] MEDS ORDERED: TOTAL PARENTERAL NUTRITION IV SCH (21:00)
[2018-04-12] VITALS (12 sets, daily range): BP systolic 101–131; BP diastolic 60–75
[2018-04-12] MEDS: IPRATROPIUM/ALBUTEROL 0.5-3(2.5)MG/3ML NEB HHN SCH ×6 (00:51→21:10)
[2018-04-12] MEDS: METOCLOPRAMIDE HCL 10MG/2ML VIAL IV SCH ×4 (05:53→23:27)
[2018-04-12] MEDS: INSULIN LISPRO 100 UNITS/ML SUBCUT SCH ×4 (05:54→23:32)
[2018-04-12 06:19] LABS: BASOPHILS % 0.4 % (0.0-2.0); EOSINOPHILS % 1.8 % (0.0-5.0); HEMATOCRIT. 24.8 % (42.0-52.0); HEMOGLOBIN. 8.8 g/dL (14.0-18.0); MEAN CORPUSCULAR HEMOGLOBIN 35.5 pg (28.0-32.0); MEAN CORPUSCULAR VOLUME 100.1 fL (80.0-94.0); MONOCYTES % 12.3 % (2.0-8.0); NEUTROPHILS % 69.5 % (40.0-76.0); RED BLOOD CELL COUNT 2.48 mill/uL (4.7-6.1); RED CELL DISTRIBUTION WIDTH 21.9 % (11.6-14.6)
[2018-04-12] MEDS: SIMETHICONE 80MG TABLET CHEW PO SCH ×4 (07:55→22:04)
[2018-04-12] MEDS: RIFAXIMIN 550 MG TABLET PO SCH ×2 (08:00→22:03)
[2018-04-12] MEDS: PANTOPRAZOLE SODIUM 40 MG/VIAL IV SCH ×2 (08:00→22:03)
[2018-04-12 11:11] LABS: MEAN PLATELET VOLUME 9.4 fl (7.4-10.4); PLATELET 34 x1000/uL (130-400)
[2018-04-12] MEDS ORDERED: TOTAL PARENTERAL NUTRITION IV SCH (21:00)
[2018-04-12] MEDS: EPOETIN ALFA 10000UNITS/ML VIAL SUBCUT SCH (22:14)
[2018-04-13] VITALS (14 sets, daily range): BP systolic 103–117; BP diastolic 60–79
[2018-04-13] MEDS: IPRATROPIUM/ALBUTEROL 0.5-3(2.5)MG/3ML NEB HHN SCH ×6 (00:59→21:06)
[2018-04-13] MEDS: INSULIN LISPRO 100 UNITS/ML SUBCUT SCH ×3 (06:00→17:10)
[2018-04-13] MEDS: METOCLOPRAMIDE HCL 10MG/2ML VIAL IV SCH ×3 (06:00→17:15)
[2018-04-13 06:49] LABS: BASOPHILS % 0.5 % (0.0-2.0); EOSINOPHILS % 2.1 % (0.0-5.0); HEMATOCRIT. 24.6 % (42.0-52.0); HEMOGLOBIN. 8.7 g/dL (14.0-18.0); LYMPHOCYTES % 15.2 % (20.0-50.0); MEAN CORPUSCULAR HEMOGLOBIN 35.5 pg (28.0-32.0); MEAN PLATELET VOLUME 9.9 fl (7.4-10.4); NEUTROPHILS % 70.2 % (40.0-76.0); RED BLOOD CELL COUNT 2.46 mill/uL (4.7-6.1); RED CELL DISTRIBUTION WIDTH 21.5 % (11.6-14.6)
[2018-04-13] MEDS: SIMETHICONE 80MG TABLET CHEW PO SCH ×4 (08:38→21:59)
[2018-04-13] MEDS: PANTOPRAZOLE SODIUM 40 MG/VIAL IV SCH ×2 (08:38→21:59)
[2018-04-13] MEDS: RIFAXIMIN 550 MG TABLET PO SCH ×2 (08:38→21:58)
[2018-04-13 10:20] LABS: PLATELET ESTIMATE MARKEDLY DECREASED
[2018-04-13 10:21] LABS: PLATELET 46 x1000/uL (130-400)
[2018-04-13] MEDS ORDERED: TOTAL PARENTERAL NUTRITION IV SCH (21:00)
[2018-04-14] VITALS (15 sets, daily range): BP systolic 101–136; BP diastolic 44–78
[2018-04-14] MEDS: IPRATROPIUM/ALBUTEROL 0.5-3(2.5)MG/3ML NEB HHN SCH ×6 (00:25→21:25)
[2018-04-14] MEDS: INSULIN LISPRO 100 UNITS/ML SUBCUT SCH ×5 (06:00→23:19)
[2018-04-14] MEDS: METOCLOPRAMIDE HCL 10MG/2ML VIAL IV SCH ×5 (06:05→23:19)
[2018-04-14 06:37] LABS: INR 1.7; PARTIAL THROMBOPLASTIN TIME 40.7 sec (23.4-31.0); PROTHROMBIN TIME 17.4 sec (9.4-11.6)
[2018-04-14 06:48] LABS: BASOPHILS % 0.2 % (0.0-2.0); EOSINOPHILS % 1.5 % (0.0-5.0); HEMATOCRIT. 22.2 % (42.0-52.0); HEMOGLOBIN. 7.7 g/dL (14.0-18.0); LYMPHOCYTES % 10.5 % (20.0-50.0); MEAN CORPUSCULAR HEMOGLOBIN 35.1 pg (28.0-32.0); MEAN CORPUSCULAR VOLUME 100.4 fL (80.0-94.0); MONOCYTES % 10.1 % (2.0-8.0); NEUTROPHILS % 77.7 % (40.0-76.0); RED BLOOD CELL COUNT 2.21 mill/uL (4.7-6.1); RED CELL DISTRIBUTION WIDTH 21.6 % (11.6-14.6)
[2018-04-14] MEDS: PANTOPRAZOLE SODIUM 40 MG/VIAL IV SCH ×2 (08:31→21:29)
[2018-04-14] MEDS: SIMETHICONE 80MG TABLET CHEW PO SCH ×4 (08:31→21:29)
[2018-04-14] MEDS: RIFAXIMIN 550 MG TABLET PO SCH ×2 (08:33→21:34)
[2018-04-14 10:10] LABS: MEAN PLATELET VOLUME 8.9 fl (7.4-10.4); PLATELET 54 x1000/uL (130-400)
[2018-04-14 19:31] LABS: HEMOGLOBIN 8.7 g/dL (14.0-18.0); MEAN CORPUSCULAR HEMOGLOBIN 35.1 pg (28.0-32.0); MEAN CORPUSCULAR VOLUME 100.8 fL (80.0-94.0); PLATELET 64 x1000/uL (130-400); RED BLOOD CELL COUNT 2.48 mill/uL (4.7-6.1); RED CELL DISTRIBUTION WIDTH 21.3 % (11.6-14.6)
[2018-04-14] MEDS ORDERED: TOTAL PARENTERAL NUTRITION IV SCH (21:00)
[2018-04-15] VITALS (12 sets, daily range): BP systolic 91–149; BP diastolic 42–82
[2018-04-15] MEDS: IPRATROPIUM/ALBUTEROL 0.5-3(2.5)MG/3ML NEB HHN SCH ×6 (04:37→20:56)
[2018-04-15 05:41] LABS: BASOPHILS % 0.3 % (0.0-2.0); EOSINOPHILS % 1.1 % (0.0-5.0); HEMATOCRIT. 24.2 % (42.0-52.0); HEMOGLOBIN. 8.5 g/dL (14.0-18.0); LYMPHOCYTES % 8.7 % (20.0-50.0); MEAN CORPUSCULAR HEMOGLOBIN 35.4 pg (28.0-32.0); MEAN CORPUSCULAR VOLUME 100.6 fL (80.0-94.0); MEAN PLATELET VOLUME 9.9 fl (7.4-10.4); NEUTROPHILS % 81.9 % (40.0-76.0); RED CELL DISTRIBUTION WIDTH 21.2 % (11.6-14.6)
[2018-04-15 05:49] LABS: INR 1.7; PROTHROMBIN TIME 17.8 sec (9.4-11.6)
[2018-04-15] MEDS: INSULIN LISPRO 100 UNITS/ML SUBCUT SCH ×4 (06:00→23:24)
[2018-04-15 06:12] LABS: PLATELET 67 x1000/uL (130-400)
[2018-04-15 06:27] LABS: PHOSPHORUS 2.7 mg/dL (2.5-4.9)
[2018-04-15] MEDS: METOCLOPRAMIDE HCL 10MG/2ML VIAL IV SCH ×4 (06:43→23:31)
[2018-04-15] MEDS: SIMETHICONE 80MG TABLET CHEW PO SCH ×4 (08:00→20:51)
[2018-04-15] MEDS ORDERED: SODIUM BICARBONATE 4% (2.4MEQ) 5ML VIAL IV ONE (08:10)
[2018-04-15] MEDS ORDERED: LIDOCAINE HCL/PF 1% 10 MG/ML 5ML VIAL ONE (08:11)
[2018-04-15] MEDS: RIFAXIMIN 550 MG TABLET PO SCH ×2 (08:42→20:51)
[2018-04-15] MEDS: PANTOPRAZOLE SODIUM 40 MG/VIAL IV SCH ×2 (08:51→20:51)
[2018-04-15 10:53] LABS: PLATELET ESTIMATE DECREASED
[2018-04-15] MEDS: TOTAL PARENTERAL NUTRITION IV SCH (20:48)
[2018-04-15] MEDS: EPOETIN ALFA 10000UNITS/ML VIAL SUBCUT SCH (20:52)
[2018-04-16] VITALS (12 sets, daily range): BP systolic 84–100; BP diastolic 38–72
[2018-04-16] MEDS: IPRATROPIUM/ALBUTEROL 0.5-3(2.5)MG/3ML NEB HHN SCH ×6 (00:42→20:27)
[2018-04-16] MEDS ORDERED: SODIUM CHLORIDE 0.9% 500 ML IV SCH ×2 (06:00→10:30)
[2018-04-16] MEDS ORDERED: ALBUMIN HUMAN 25GM/100ML (25%) IV SCH (06:00)
[2018-04-16] MEDS: INSULIN LISPRO 100 UNITS/ML SUBCUT SCH ×3 (06:00→17:19)
[2018-04-16] MEDS: METOCLOPRAMIDE HCL 10MG/2ML VIAL IV SCH ×3 (06:18→17:10)
[2018-04-16 06:20] LABS: HEMOGLOBIN. 8.4 g/dL (14.0-18.0); MEAN CORPUSCULAR HEMOGLOBIN 35.2 pg (28.0-32.0); MEAN CORPUSCULAR VOLUME 100.9 fL (80.0-94.0); RED BLOOD CELL COUNT 2.38 mill/uL (4.7-6.1); RED CELL DISTRIBUTION WIDTH 21.3 % (11.6-14.6)
[2018-04-16 06:50] LABS: PHOSPHORUS 2.8 mg/dL (2.5-4.9)
[2018-04-16] MEDS: SIMETHICONE 80MG TABLET CHEW PO SCH ×4 (08:00→21:54)
[2018-04-16] MEDS: RIFAXIMIN 550 MG TABLET PO SCH ×2 (09:00→21:54)
[2018-04-16] MEDS: PANTOPRAZOLE SODIUM 40 MG/VIAL IV SCH ×2 (09:00→21:53)
[2018-04-16 09:26] LABS: PLATELET 72 x1000/uL (130-400)
[2018-04-16 09:31] LABS: PLATELET ESTIMATE DECREASED
[2018-04-16] MEDS ORDERED: VANCOMYCIN 1 G PREMIX 200 ML IV SCH (14:00)
[2018-04-16] MEDS: CEFEPIME 1,000 MG in DEXTROSE 5% WATER 50 ML IV SCH (17:10)
[2018-04-16] MEDS ORDERED: TOTAL PARENTERAL NUTRITION IV SCH (21:00)
[2018-04-16] MEDS: TOTAL PARENTERAL NUTRITION IV SCH (21:00)
[2018-04-17] VITALS (12 sets, daily range): BP systolic 82–106; BP diastolic 48–63
[2018-04-17] MEDS: METOCLOPRAMIDE HCL 10MG/2ML VIAL IV SCH ×5 (00:13→23:14)
[2018-04-17] MEDS: IPRATROPIUM/ALBUTEROL 0.5-3(2.5)MG/3ML NEB HHN SCH ×6 (00:39→22:15)
[2018-04-17] MEDS: INSULIN LISPRO 100 UNITS/ML SUBCUT SCH ×5 (05:58→23:40)
[2018-04-17 07:28] LABS: BASOPHILS % 0.7 % (0.0-2.0); EOSINOPHILS % 1.6 % (0.0-5.0); HEMATOCRIT. 21.2 % (42.0-52.0); HEMOGLOBIN. 7.4 g/dL (14.0-18.0); MEAN CORPUSCULAR HEMOGLOBIN 35.6 pg (28.0-32.0); MEAN CORPUSCULAR VOLUME 102.2 fL (80.0-94.0); MONOCYTES % 8.7 % (2.0-8.0); RED BLOOD CELL COUNT 2.07 mill/uL (4.7-6.1); RED CELL DISTRIBUTION WIDTH 21.2 % (11.6-14.6)
[2018-04-17] MEDS: PANTOPRAZOLE SODIUM 40 MG/VIAL IV SCH ×2 (09:02→21:10)
[2018-04-17] MEDS: SIMETHICONE 80MG TABLET CHEW PO SCH ×4 (09:02→21:10)
[2018-04-17] MEDS: RIFAXIMIN 550 MG TABLET PO SCH ×2 (09:02→21:10)
[2018-04-17 09:55] LABS: MEAN PLATELET VOLUME 10.6 fl (7.4-10.4); PLATELET 63 x1000/uL (130-400)
[2018-04-17] MEDS: CEFEPIME 1,000 MG in DEXTROSE 5% WATER 50 ML IV SCH (15:53)
[2018-04-17 17:21] LABS: HEMATOCRIT 22.3 % (42.0-52.0); HEMOGLOBIN 7.7 g/dL (14.0-18.0)
[2018-04-17] MEDS ORDERED: TOTAL PARENTERAL NUTRITION IV SCH (21:00)
[2018-04-18] VITALS (13 sets, daily range): BP systolic 76–110; BP diastolic 41–68
[2018-04-18] MEDS: IPRATROPIUM/ALBUTEROL 0.5-3(2.5)MG/3ML NEB HHN SCH ×5 (04:00→20:20)
[2018-04-18] MEDS: INSULIN LISPRO 100 UNITS/ML SUBCUT SCH ×3 (06:00→18:00)
[2018-04-18] MEDS: METOCLOPRAMIDE HCL 10MG/2ML VIAL IV SCH ×3 (06:24→18:28)
[2018-04-18 06:40] LABS: BASOPHILS % 0.3 % (0.0-2.0); EOSINOPHILS % 1.9 % (0.0-5.0); HEMATOCRIT. 23.2 % (42.0-52.0); LYMPHOCYTES % 8.7 % (20.0-50.0); MEAN CORPUSCULAR HEMOGLOBIN 35.3 pg (28.0-32.0); MEAN CORPUSCULAR VOLUME 102.4 fL (80.0-94.0); MONOCYTES % 8.9 % (2.0-8.0); NEUTROPHILS % 80.2 % (40.0-76.0); RED BLOOD CELL COUNT 2.27 mill/uL (4.7-6.1); RED CELL DISTRIBUTION WIDTH 22.7 % (11.6-14.6)
[2018-04-18] MEDS: SIMETHICONE 80MG TABLET CHEW PO SCH ×4 (08:00→21:24)
[2018-04-18 08:22] LABS: MEAN PLATELET VOLUME 9.5 fl (7.4-10.4); PLATELET 71 x1000/uL (130-400)
[2018-04-18] MEDS: RIFAXIMIN 550 MG TABLET PO SCH ×2 (09:00→21:24)
[2018-04-18] MEDS: PANTOPRAZOLE SODIUM 40 MG/VIAL IV SCH ×2 (09:16→21:23)
[2018-04-18] MEDS: CEFEPIME 1,000 MG in DEXTROSE 5% WATER 50 ML IV SCH (16:29)
[2018-04-18] MEDS: FAT EMULSIONS 500 ML IV SCH (21:25)
[2018-04-18] MEDS: TOTAL PARENTERAL NUTRITION IV SCH (23:44)
[2018-04-19] VITALS (18 sets, daily range): BP systolic 32–137; BP diastolic 22–67
[2018-04-19] MEDS: IPRATROPIUM/ALBUTEROL 0.5-3(2.5)MG/3ML NEB HHN SCH ×4 (00:08→20:00)
[2018-04-19] MEDS: METOCLOPRAMIDE HCL 10MG/2ML VIAL IV SCH ×5 (00:58→23:54)
[2018-04-19] MEDS: INSULIN LISPRO 100 UNITS/ML SUBCUT SCH ×4 (05:39→18:00)
[2018-04-19 06:51] LABS: INR 2.4; PROTHROMBIN TIME 24.4 sec (9.4-11.6)
[2018-04-19] MEDS: SIMETHICONE 80MG TABLET CHEW PO SCH ×4 (08:46→20:56)
[2018-04-19] MEDS: PANTOPRAZOLE SODIUM 40 MG/VIAL IV SCH ×2 (08:46→20:56)
[2018-04-19] MEDS: RIFAXIMIN 550 MG TABLET PO SCH ×2 (08:46→20:58)
[2018-04-19] MEDS: PHYTONADIONE 10MG/ML AMP IM SCH (12:02)
[2018-04-19] MEDS: CEFEPIME 1,000 MG in DEXTROSE 5% WATER 50 ML IV SCH (17:26)
[2018-04-19] MEDS: TOTAL PARENTERAL NUTRITION IV SCH (18:00)
[2018-04-19 19:54] LABS: INR 1.9; PROTHROMBIN TIME 19.4 sec (9.4-11.6)
[2018-04-19] MEDS ORDERED: TOTAL PARENTERAL NUTRITION IV SCH (21:00)
[2018-04-20] VITALS (11 sets, daily range): BP systolic 69–105; BP diastolic 40–56
[2018-04-20] MEDS: IPRATROPIUM/ALBUTEROL 0.5-3(2.5)MG/3ML NEB HHN SCH ×6 (00:13→20:45)
[2018-04-20] MEDS: METOCLOPRAMIDE HCL 10MG/2ML VIAL IV SCH ×3 (05:06→18:23)
[2018-04-20] MEDS: INSULIN LISPRO 100 UNITS/ML SUBCUT SCH ×4 (05:07→18:00)
[2018-04-20] MEDS: PHYTONADIONE 10MG/ML AMP IM SCH (09:38)
[2018-04-20] MEDS: PANTOPRAZOLE SODIUM 40 MG/VIAL IV SCH ×2 (09:38→21:23)
[2018-04-20] MEDS: RIFAXIMIN 550 MG TABLET PO SCH (09:43)
[2018-04-20] MEDS: SIMETHICONE 80MG TABLET CHEW PO SCH ×4 (09:43→21:23)
[2018-04-20] MEDS: CEFEPIME 1,000 MG in DEXTROSE 5% WATER 50 ML IV SCH (17:03)
[2018-04-20] MEDS ORDERED: TOTAL PARENTERAL NUTRITION IV SCH (21:00)
[2018-04-21] VITALS: BP 81/37
[2018-04-21] MEDS: IPRATROPIUM/ALBUTEROL 0.5-3(2.5)MG/3ML NEB HHN SCH ×6 (00:48→21:25)
[2018-04-21 04:00] VITALS: BP 82/39
[2018-04-21] MEDS: INSULIN LISPRO 100 UNITS/ML SUBCUT SCH ×4 (06:00→17:35)
[2018-04-21] MEDS: METOCLOPRAMIDE HCL 10MG/2ML VIAL IV SCH ×4 (06:06→17:11)
[2018-04-21 08:00] VITALS: BP 143/98
[2018-04-21] MEDS: PHYTONADIONE 10MG/ML AMP IM SCH (09:59)
[2018-04-21] MEDS: RIFAXIMIN 550 MG TABLET PO SCH ×3 (09:59→20:36)
[2018-04-21] MEDS: SIMETHICONE 80MG TABLET CHEW PO SCH ×3 (09:59→20:36)
[2018-04-21] MEDS: PANTOPRAZOLE SODIUM 40 MG/VIAL IV SCH ×2 (09:59→20:36)
[2018-04-21 12:00] VITALS: BP 139/91
[2018-04-21 16:00] VITALS: BP 88/33
[2018-04-21] MEDS: MIDODRINE HCL 5MG TABLET PO SCH (17:11)
[2018-04-21 20:00] VITALS: BP 99/44
[2018-04-21] MEDS ORDERED: TOTAL PARENTERAL NUTRITION IV SCH (21:00)
[2018-04-22] VITALS: BP 96/37
[2018-04-22] MEDS: METOCLOPRAMIDE HCL 10MG/2ML VIAL IV SCH ×5 (00:53→23:44)
[2018-04-22] MEDS: IPRATROPIUM/ALBUTEROL 0.5-3(2.5)MG/3ML NEB HHN SCH ×6 (01:05→21:31)
[2018-04-22 04:00] VITALS: BP 93/49
[2018-04-22] MEDS: INSULIN LISPRO 100 UNITS/ML SUBCUT SCH ×4 (05:46→17:43)
[2018-04-22 07:55] LABS: HEMOGLOBIN 7.2 g/dL (14.0-18.0); MEAN CORPUSCULAR HEMOGLOBIN 35.6 pg (28.0-32.0); MEAN CORPUSCULAR VOLUME 103.9 fL (80.0-94.0); RED BLOOD CELL COUNT 2.02 mill/uL (4.7-6.1); RED CELL DISTRIBUTION WIDTH 24.5 % (11.6-14.6)
[2018-04-22 07:56] VITALS: BP 102/58
[2018-04-22 08:01] LABS: PLATELET 40 x1000/uL (130-400)
[2018-04-22 08:33] LABS: CHLORIDE 100 mEq/L (98-107)
[2018-04-22] MEDS: RIFAXIMIN 550 MG TABLET PO SCH ×2 (08:52→22:39)
[2018-04-22] MEDS: PANTOPRAZOLE SODIUM 40 MG/VIAL IV SCH ×2 (08:52→22:39)
[2018-04-22] MEDS: MIDODRINE HCL 5MG TABLET PO SCH ×3 (08:53→17:25)
[2018-04-22] MEDS: SIMETHICONE 80MG TABLET CHEW PO SCH ×4 (08:53→22:39)
[2018-04-22 12:00] VITALS: BP 101/46
[2018-04-22 16:00] VITALS: BP 93/45
[2018-04-22 16:39] LABS: INR 1.9; PROTHROMBIN TIME 19.7 sec (9.4-11.6)
[2018-04-22] MEDS ORDERED: PHYTONADIONE 10MG/ML AMP SUBCUT NR (16:45)
[2018-04-22 19:48] VITALS: BP 89/41
[2018-04-22] MEDS ORDERED: TOTAL PARENTERAL NUTRITION IV SCH (21:00)
[2018-04-23] VITALS (12 sets, daily range): BP systolic 80–154; BP diastolic 27–98
[2018-04-23] MEDS: IPRATROPIUM/ALBUTEROL 0.5-3(2.5)MG/3ML NEB HHN SCH ×5 (02:32→20:56)
[2018-04-23] MEDS: INSULIN LISPRO 100 UNITS/ML SUBCUT SCH ×4 (05:29→18:00)
[2018-04-23] MEDS: METOCLOPRAMIDE HCL 10MG/2ML VIAL IV SCH ×3 (06:22→18:42)
[2018-04-23 06:56] LABS: HEMATOCRIT 25.6 % (42.0-52.0); HEMOGLOBIN 8.9 g/dL (14.0-18.0); MEAN CORPUSCULAR VOLUME 100.2 fL (80.0-94.0); RED BLOOD CELL COUNT 2.56 mill/uL (4.7-6.1); RED CELL DISTRIBUTION WIDTH 23.3 % (11.6-14.6)
[2018-04-23 07:04] LABS: INR 1.9; PARTIAL THROMBOPLASTIN TIME 46.2 sec (23.4-31.0); PROTHROMBIN TIME 19.7 sec (9.4-11.6)
[2018-04-23] MEDS: MIDODRINE HCL 5MG TABLET PO SCH ×3 (08:37→18:42)
[2018-04-23] MEDS: RIFAXIMIN 550 MG TABLET PO SCH ×2 (08:37→21:01)
[2018-04-23] MEDS: SIMETHICONE 80MG TABLET CHEW PO SCH ×4 (08:37→21:01)
[2018-04-23] MEDS: PANTOPRAZOLE SODIUM 40 MG/VIAL IV SCH ×2 (08:37→21:01)
[2018-04-23] MEDS ORDERED: SODIUM BICARBONATE 4% (2.4MEQ) 5ML VIAL IV ONE (08:57)
[2018-04-23] MEDS ORDERED: LIDOCAINE HCL/PF 1% 10 MG/ML 5ML VIAL ONE (08:58)
[2018-04-23 11:27] LABS: PLATELET 49 x1000/uL (130-400)
[2018-04-23] MEDS ORDERED: TOTAL PARENTERAL NUTRITION IV SCH (21:00)
[2018-04-24] VITALS: BP 82/36
[2018-04-24] MEDS: IPRATROPIUM/ALBUTEROL 0.5-3(2.5)MG/3ML NEB HHN SCH ×6 (00:12→21:09)
[2018-04-24] MEDS: METOCLOPRAMIDE HCL 10MG/2ML VIAL IV SCH ×4 (02:36→18:08)
[2018-04-24 04:00] VITALS: BP 83/35
[2018-04-24 05:53] LABS: HEMATOCRIT. 23.7 % (42.0-52.0); HEMOGLOBIN. 8.3 g/dL (14.0-18.0); MEAN CORPUSCULAR HEMOGLOBIN 35.1 pg (28.0-32.0); MEAN CORPUSCULAR VOLUME 100.4 fL (80.0-94.0); MEAN PLATELET VOLUME 10.9 fl (7.4-10.4); RED BLOOD CELL COUNT 2.36 mill/uL (4.7-6.1); RED CELL DISTRIBUTION WIDTH 23.8 % (11.6-14.6)
[2018-04-24] MEDS: INSULIN LISPRO 100 UNITS/ML SUBCUT SCH ×4 (05:56→18:00)
[2018-04-24] MEDS: MIDODRINE HCL 5MG TABLET PO SCH ×4 (08:30→18:09)
[2018-04-24] MEDS: RIFAXIMIN 550 MG TABLET PO SCH ×2 (08:30→21:11)
[2018-04-24] MEDS: SIMETHICONE 80MG TABLET CHEW PO SCH ×4 (08:30→21:13)
[2018-04-24] MEDS: PANTOPRAZOLE SODIUM 40 MG/VIAL IV SCH ×2 (08:30→21:11)
[2018-04-24 08:34] VITALS: BP 102/40
[2018-04-24 09:05] LABS: PLATELET ESTIMATE MARKEDLY DECREASED
[2018-04-24 09:06] LABS: PLATELET 43 x1000/uL (130-400)
[2018-04-24 12:43] VITALS: BP 92/37
[2018-04-24 15:51] VITALS: BP 86/38
[2018-04-24 20:00] VITALS: BP 83/38
[2018-04-24] MEDS ORDERED: TOTAL PARENTERAL NUTRITION IV SCH (21:00)
[2018-04-25] VITALS (8 sets, daily range): BP systolic 74–143; BP diastolic 31–119
[2018-04-25] MEDS: IPRATROPIUM/ALBUTEROL 0.5-3(2.5)MG/3ML NEB HHN SCH ×6 (00:27→20:47)
[2018-04-25] MEDS: INSULIN LISPRO 100 UNITS/ML SUBCUT SCH ×4 (06:00→18:00)
[2018-04-25] MEDS: METOCLOPRAMIDE HCL 10MG/2ML VIAL IV SCH ×4 (06:15→18:17)
[2018-04-25 07:29] LABS: HEMATOCRIT. 25.2 % (42.0-52.0); HEMOGLOBIN. 8.7 g/dL (14.0-18.0); MEAN CORPUSCULAR HEMOGLOBIN 34.7 pg (28.0-32.0); MEAN CORPUSCULAR VOLUME 100.5 fL (80.0-94.0); RED BLOOD CELL COUNT 2.51 mill/uL (4.7-6.1); RED CELL DISTRIBUTION WIDTH 23.7 % (11.6-14.6)
[2018-04-25] MEDS: PANTOPRAZOLE SODIUM 40 MG/VIAL IV SCH ×2 (08:43→20:37)
[2018-04-25] MEDS: MIDODRINE HCL 5MG TABLET PO SCH ×3 (08:47→18:17)
[2018-04-25] MEDS: RIFAXIMIN 550 MG TABLET PO SCH ×2 (08:47→20:37)
[2018-04-25] MEDS: SIMETHICONE 80MG TABLET CHEW PO SCH ×4 (08:47→20:37)
[2018-04-25 09:48] LABS: PLATELET ESTIMATE DECREASED
[2018-04-25 09:52] LABS: PLATELET 65 x1000/uL (130-400)
[2018-04-25] MEDS ORDERED: SODIUM CHLORIDE 0.45% 1,000 ML IV ONE (18:15)
[2018-04-25] MEDS ORDERED: DEXTROSE 5% WATER 1,000 ML IV SCH ×2 (19:15→22:45)
[2018-04-26] VITALS: BP 72/42
[2018-04-26] MEDS: METOCLOPRAMIDE HCL 10MG/2ML VIAL IV SCH ×2 (00:19→06:34)
[2018-04-26] MEDS: IPRATROPIUM/ALBUTEROL 0.5-3(2.5)MG/3ML NEB HHN SCH ×3 (01:06→07:30)
[2018-04-26 04:00] VITALS: BP 95/49
[2018-04-26] MEDS: INSULIN LISPRO 100 UNITS/ML SUBCUT SCH ×2 (05:36)
[2018-04-26] MEDS ORDERED: DEXT 5%/0.9% NACL 1,000 ML IV SCH (06:00)
[2018-04-26 06:33] LABS: BASOPHILS % 0.2 % (0.0-2.0); EOSINOPHILS % 0.7 % (0.0-5.0); HEMATOCRIT. 29.1 % (42.0-52.0); HEMOGLOBIN. 9.9 g/dL (14.0-18.0); LYMPHOCYTES % 9.6 % (20.0-50.0); MEAN CORPUSCULAR VOLUME 103.1 fL (80.0-94.0); MEAN PLATELET VOLUME 11.9 fl (7.4-10.4); MONOCYTES % 1.7 % (2.0-8.0); NEUTROPHILS % 87.8 % (40.0-76.0); PLATELET 88 x1000/uL (130-400); RED BLOOD CELL COUNT 2.82 mill/uL (4.7-6.1)
== END 2018-04-26 08:30 | disposition expired | DRG 951 ==
LOC: ER 10:03 → EDBEDREQ 13:22 → CANRESERV 14:05 → ENRESERV 14:05 → 8WST 14:05 → ENRESERV 14:06 → 8WST 03-11 06:59 → MICUSO 03-14 11:00 → 5EST 04-01 22:40 → 8WST 04-20 19:24
PROVIDERS: ADMIT Internal Medicine Nephrology; ATTEND Internal Medicine Nephrology
PROC: 0W3P8ZZ Control Bleeding in Gastrointestinal Tract, Via Natural or Artificial Opening Endoscopic (ICD-10-PCS; 2018-02-27)
PROC: 30233L1 Transfusion of Nonautologous Fresh Plasma into Peripheral Vein, Percutaneous Approach (ICD-10-PCS; 2018-02-27)
PROC: 30233K1 Transfusion of Nonautologous Frozen Plasma into Peripheral Vein, Percutaneous Approach (ICD-10-PCS; 2018-02-27)
PROC: 0W9G3ZZ Drainage of Peritoneal Cavity, Percutaneous Approach (ICD-10-PCS; 2018-02-28)
PROC: 009630Z Drainage of Cerebral Ventricle with Drainage Device, Percutaneous Approach (ICD-10-PCS; principal; 2018-03-14)
PROC: 5A1955Z Respiratory Ventilation, Greater than 96 Consecutive Hours (ICD-10-PCS; 2018-03-14)
PROC: 0BH17EZ Insertion of Endotracheal Airway into Trachea, Via Natural or Artificial Opening (ICD-10-PCS; 2018-03-14)
PROC: 009630Z Drainage of Cerebral Ventricle with Drainage Device, Percutaneous Approach (ICD-10-PCS; 2018-03-14)
PROC: 02HV33Z Insertion of Infusion Device into Superior Vena Cava, Percutaneous Approach (ICD-10-PCS; 2018-03-15)
PROC: B548ZZA Ultrasonography of Superior Vena Cava, Guidance (ICD-10-PCS; 2018-03-15)
PROC: 02H633Z Insertion of Infusion Device into Right Atrium, Percutaneous Approach (ICD-10-PCS; 2018-03-23)
PROC: B244ZZZ Ultrasonography of Right Heart (ICD-10-PCS; 2018-03-23)
PROC: 5A1D70Z Performance of Urinary Filtration, Intermittent, Less than 6 Hours Per Day (ICD-10-PCS; 2018-03-23)
PROC: 0W9G3ZZ Drainage of Peritoneal Cavity, Percutaneous Approach (ICD-10-PCS; 2018-03-24)
PROC: 5A1D70Z Performance of Urinary Filtration, Intermittent, Less than 6 Hours Per Day (ICD-10-PCS; 2018-03-24)
PROC: 5A1D70Z Performance of Urinary Filtration, Intermittent, Less than 6 Hours Per Day (ICD-10-PCS; 2018-03-26)
PROC: 5A1D70Z Performance of Urinary Filtration, Intermittent, Less than 6 Hours Per Day (ICD-10-PCS; 2018-03-27)
PROC: 0W9G3ZZ Drainage of Peritoneal Cavity, Percutaneous Approach (ICD-10-PCS; 2018-03-29)
PROC: 5A1D70Z Performance of Urinary Filtration, Intermittent, Less than 6 Hours Per Day (ICD-10-PCS; 2018-03-29)
PROC: 5A1D70Z Performance of Urinary Filtration, Intermittent, Less than 6 Hours Per Day (ICD-10-PCS; 2018-03-31)
PROC: 5A1D70Z Performance of Urinary Filtration, Intermittent, Less than 6 Hours Per Day (ICD-10-PCS; 2018-04-02)
PROC: 30233N1 Transfusion of Nonautologous Red Blood Cells into Peripheral Vein, Percutaneous Approach (ICD-10-PCS; 2018-04-05)
PROC: 30233R1 Transfusion of Nonautologous Platelets into Peripheral Vein, Percutaneous Approach (ICD-10-PCS; 2018-04-06)
PROC: 0W9G3ZZ Drainage of Peritoneal Cavity, Percutaneous Approach (ICD-10-PCS; 2018-04-09)
PROC: 5A1D70Z Performance of Urinary Filtration, Intermittent, Less than 6 Hours Per Day (ICD-10-PCS; 2018-04-09)
PROC: 5A1D70Z Performance of Urinary Filtration, Intermittent, Less than 6 Hours Per Day (ICD-10-PCS; 2018-04-10)
PROC: 5A1D70Z Performance of Urinary Filtration, Intermittent, Less than 6 Hours Per Day (ICD-10-PCS; 2018-04-12)
PROC: 0W9G3ZZ Drainage of Peritoneal Cavity, Percutaneous Approach (ICD-10-PCS; 2018-04-15)
PROC: 5A1D70Z Performance of Urinary Filtration, Intermittent, Less than 6 Hours Per Day (ICD-10-PCS; 2018-04-15)
PROC: 5A1D70Z Performance of Urinary Filtration, Intermittent, Less than 6 Hours Per Day (ICD-10-PCS; 2018-04-17)
PROC: 5A1D70Z Performance of Urinary Filtration, Intermittent, Less than 6 Hours Per Day (ICD-10-PCS; 2018-04-20)
PROC: 5A1D70Z Performance of Urinary Filtration, Intermittent, Less than 6 Hours Per Day (ICD-10-PCS; 2018-04-22)
PROC: 0W9G3ZZ Drainage of Peritoneal Cavity, Percutaneous Approach (ICD-10-PCS; 2018-04-23)
DX: K72.00 Acute and subacute hepatic failure without coma (principal); A41.01 Sepsis due to Methicillin susceptible Staphylococcus aureus; J96.01 Acute respiratory failure with hypoxia; K76.7 Hepatorenal syndrome; G93.41 Metabolic encephalopathy; I61.4 Nontraumatic intracerebral hemorrhage in cerebellum; I61.5 Nontraumatic intracerebral hemorrhage, intraventricular; J69.0 Pneumonitis due to inhalation of food and vomit; K25.4 Chronic or unspecified gastric ulcer with hemorrhage; K92.0 Hematemesis; N17.0 Acute kidney failure with tubular necrosis; E43 Unspecified severe protein-calorie malnutrition; D68.4 Acquired coagulation factor deficiency; E86.0 Dehydration; D53.9 Nutritional anemia, unspecified; D50.9 Iron deficiency anemia, unspecified; D61.818 Other pancytopenia; E11.22 Type 2 diabetes mellitus with diabetic chronic kidney disease; E87.0 Hyperosmolality and hypernatremia; I12.0 Hypertensive chronic kidney disease with stage 5 chronic kidney disease or end stage renal disease; I42.9 Cardiomyopathy, unspecified; L89.159 Pressure ulcer of sacral region, unspecified stage; I85.10 Secondary esophageal varices without bleeding; K29.40 Chronic atrophic gastritis without bleeding; K76.6 Portal hypertension; K31.89 Other diseases of stomach and duodenum; E87.6 Hypokalemia; F10.20 Alcohol dependence, uncomplicated; E87.3 Alkalosis; Z66 Do not resuscitate; G91.9 Hydrocephalus, unspecified; D50.0 Iron deficiency anemia secondary to blood loss (chronic); K22.10 Ulcer of esophagus without bleeding; Z51.5 Encounter for palliative care; J98.11 Atelectasis; K29.20 Alcoholic gastritis without bleeding; K56.0 Paralytic ileus; K70.11 Alcoholic hepatitis with ascites; N18.6 End stage renal disease; R04.0 Epistaxis; R65.21 Severe sepsis with septic shock; Z78.1 Physical restraint status; Z87.19 Personal history of other diseases of the digestive system; Z74.01 Bed confinement status; Z68.28 Body mass index [BMI] 28.0-28.9, adult; Z59.0 Homelessness; Z99.2 Dependence on renal dialysis; Z86.73 Personal history of transient ischemic attack (TIA), and cerebral infarction without residual deficits; K74.60 Unspecified cirrhosis of liver
CPT/HCPCS: 36415; 36569; 36600; 49083; 70450; 70490; 71045; 74018; 74250; 76700; 76705; 76770; 76937; 80048; 80053; 80061; 80076; 80202; 81003; 82040; 82140; 82248; 82375; 82550; 82565; 82805; 82962; 83615; 83690; 83735; 84100; 84157; 84439; 84443; 84478; 84484; 84520; 85007; 85014; 85018; 85025; 85027; 85049; 85384; 85610; 85730; 86705; 86709; 86803; 86850; 86900; 86920; 86927; 87040; 87070; 87077; 87086; 87186; 87205; 87340; 88108; 88312; 89050; 92610; 93005; 93306; 93970; 94003; 94640; 94667; 97110; 97112; 97116; 97162; 97164; 97166; 97530; 99285; A4216; A6261; C1725; C1752; C1893; C9113; G0482; J0690; J0692; J0885; J1644; J1650; J1815; J1940; J1956; J2250; J2270; J2405; J2543; J2765; J3010; J3370; J3430; J3480; J3490; J7030; J7040; J7042; J7050; J7060; J7070; J7121; J7608; J7620; P9016; P9017; P9034; P9047; Q9963; A4315